=== PATIENT | male | born 1985 | race Caucasian/White ===

== ENCOUNTER 2022-03-30 00:52 | Emergency (ER) | payer OTHER, SELFPAY ==
[2022-03-30 00:54] VITALS: BP 151/100; PULSE 103; RESP 20; TEMP 36.6; O2SAT 96; BMI 27.3
[2022-03-30 01:02] LABS: Glucose, Whole Blood 453 mg/dL (60-115)
[2022-03-30 01:18] LABS: MANUAL DIFF FLAG NO
[2022-03-30 01:19] LABS: Appearance Urine Clear; Basophils Percent Auto 0.4 % (0-2); Color Urine Straw; Eosinophils Absolute Auto 0.1 X10*3/uL (0.0-0.4); Eosinophils Percent Auto 0.8 % (0-4); Glucose Urine UA >=1000 mg/dL (Negative); Hematocrit 40.4 % (42.0-52.0); Hemoglobin 13.1 g/dl (14.0-18.0); Imm Gran Abs Auto 0.08 X10*3/uL (0.00-0.03); Imm Gran Pct Auto 0.9 % (0.0-0.4); Leukocyte Esterase Urine Negative (Negative); Lymphocytes Absolute Auto 3.4 X10*3/uL (1.2-4.9); Mean Corpuscular HGB Conc 32.4 g/dl (31.0-36.0); Mean Corpuscular Hemoglobin 20.2 pg (27.0-33.0); Mean Platelet Volume 10.1 fL (9.4-12.4); Monocytes Absolute Auto 0.4 X10*3/uL (0.1-1.2); Monocytes Percent Auto 4.4 % (2-11); Neutrophils Absolute Auto 5.4 x10*3/uL (2.0-8.3); Neutrophils Percent Auto 57.5 % (45-73); Nitrite Urine Negative (Negative); PH 5.5 (5.0-9.0); Platelet Count 259 X10*3/uL (160-400); Red Blood Count 6.48 X10*6/uL (4.60-5.80); Red Cell Distribution Width 16.2 % (11.0-16.0); Specific Gravity - Urine 1.015 (1.005-1.025); UMIC TRIGGER UACC YES; Urine Blood Negative (Negative); Urine Ketones 15 mg/dL (Negative); Urine Protein Negative (Neg-Trace); White Blood Count 9.3 X10*3/uL (4.8-10.8)
[2022-03-30 01:21] LABS: Mean Corpuscular Volume 62.3 fL (80.0-98.0)
[2022-03-30 01:26] LABS: Bacteria Urine None Seen (None Seen); Hyaline Casts Urine 0-2 /LPF (0-2); RBC Urine 0-2 /HPF (0-2); Squamous Epithelial Cell Urine 0-2 /HPF (0-2); WBC Urine 0-5 /HPF (0-5)
[2022-03-30 01:35] VITALS: BP 146/80; PULSE 83; RESP 16; TEMP 36.7; O2SAT 97
--- NOTE | 2022-03-30 01:37 | PC.NURSE ---
Patient is alert and oriented. No pain or discomfort. Patient stated that his blood sugars been really high lately and he is having increase urination. Vts are WNL, no signs of resp distress. Skin is warm and dry.
--- NOTE | 2022-03-30 01:39 | ED_ITS ---
HPI - General Adult General Chief complaint: General Medical Stated complaint: High BS Time Seen by Provider: 03/30/22 01:25 Source: patient Mode of arrival: ambulatory Limitations: no limitations History of Present Illness HPI narrative: Patient comes to the emergency room complaining of hyperglycemia and frequent urination. Patient denies hematuria or dysuria. Patient states that he has been diabetic for several years, takes 18 units of Lantus at bedtime, and Humalog on an insulin sliding scale. Patient states that he is supposed to take a maximum of 14 units before meals if his blood glucose is high. Patient states that he does not follow instructions and usually takes up to 25 units. Patient states that he has a strict diet and he continues having high blood sugars. Patient states that his glucose have been elevated for weeks. The only reason he decided to come in is because he has been having frequent urination Related Data Allergies Allergy/AdvReac Type Severity Reaction Status Date / Time amoxicillin [AMOXICILLIN] Allergy Unknown VONITING Unverified 12/04/19 17:53 clindamycin [CLINDAMYCIN] Allergy Unknown VOMITING Unverified 12/04/19 17:53 Penicillins [PENICILLINS] Allergy Unknown VOMITING Unverified 12/04/19 17:53 prednisone [PREDNISONE] Allergy Unknown RASH ITCHY Unverified 12/04/19 17:53 Review of Systems Review of Systems: Constitutional : No Weight loss, No Fever, No Chills, No Night Sweats, No Fatigue, No Malaise ENT/Mouth : No Hearing loss, No Ear Pain, No Nasal Congestion, No Sinus Pain, No Hoarseness, No sore throat, No Rhinorrhea, No Swallowing Difficulty Eyes: No Eye Pain, No Swelling, No Redness, No Foreign Body, No Discharge, No Vision Changes Cardiovascular : No Chest Pain, No SOB, No Dyspnea on Exertion, No Orthopnea, No Edema, No Palpitations Respiratory : No Cough, No Sputum, No Wheezing, No Smoke Exposure, No Dyspnea Gastrointestinal : No Nausea, No Vomiting, No Diarrhea, No Constipation, No ab dominal Pain, No Hematochezia, No Melena Genitourinary : no irregular bleeding, No Dysuria, complaining of Urinary Frequency, No Hematuria, No Urinary Incontinence, No Urgency, No Flank Pain, No Urinary Flow Changes, No Hesitancy Musculoskeletal : No joint pain, No Myalgias, No Joint Swelling Skin : No Skin Lesions, No rash Neuro : No Weakness, No Numbness, No Paresthesias, No Loss of Consciousness, No Dizziness, No Headache Psych : No Anxiety/Panic, No Depression, No SI/HI/AH/VH, No Social Issues, Heme/Lymph: No Bruising, No Bleeding,No Lymphadenopathy Endocrine : Complaining of polyuria polydipsia PMF Past Medical History Medical History (Updated 03/30/22 @ 04:08 by Mckenna Damon MD) Type 2 diabetes mellitus Social History Social History Alcohol intake: never Smoked in Last 30 Days: Yes Use of substances other than those prescribed or required for medical reasons: No Advance Directives: No Physical Exam ED Vital Signs: Vital Signs - 24 hr 03/30/22 00:54 03/30/22 01:35 03/30/22 01:40 Temperature 98 F 98.0 F Pulse Rate 103 H 83 83 Respiratory Rate 20 16 16 Blood Pressure 151/100 H 146/80 H 146/80 H Pulse Oximetry 96 97 97 Oxygen Delivery Method Room Air Room Air Room Air 03/30/22 02:15 03/30/22 02:30 Temperature 97.3 F Pulse Rate 87 Respiratory Rate 16 18 Blood Pressure 138/87 Pulse Oximetry 97 Oxygen Delivery Method Room Air BMI result Body Mass Index 27.3 Const Other: Appearance: Alert. Oriented X3. No acute distress. Eyes: Pupils equal, round and reactive to light. ENT: Pharynx normal. Neck: Normal inspection. Neck supple. No lymph nodes noted. No crepitus CVS: Normal heart rate and rhythm. Pulses normal. Normal S1 and S2 Respiratory: No respiratory distress. Breath sounds normal. No Wheezing. No rales Abdomen: Soft and nontender. No rigidity. No distention. Skin: Skin warm and dry. Normal skin color. Normal skin turgor. Extremities: No lower extremity edema. No Lacerations. No Rash Neuro: Oriented X 3. No motor deficit. No sensory deficit. Moving all extremities. No slurred speech. CN 2 through 12 grossly intact Psych: calm, cooperative, normal affect Course Course Course Narrative: Patient's labs pending. Patient will be giving IV fluids, IV insulin. Patient is symptomatic, glucose 267 after IV treatment with insulin and fluids. Patient instructed to increase his Lantus to 22 units and have close follow-up with his primary care physician Medications Administered Discontinued Medications Generic Name Dose Route Start Last Admin Trade Name Freq PRN Reason Stop Dose Admin Sodium Chloride 2,000 mls @ 999 mls/hr 03/30/22 01:43 03/30/22 02:22 Ns IVCONT 03/30/22 03:43 999 mls/hr .Q2H1M ONE Administration Insulin Human Regular 10 unit 03/30/22 01:43 03/30/22 02:20 Insulin Regular, Human 100 Unit/Ml 3 Ml Vial IVPUSH 03/30/22 01:44 10 unit ONCE ONE Administration Medical Decision Making Medical Decision Making [facility] Narrative: Hyperglycemia is now controlled, negative for ketones, Differential Diagnosis Differential Diagnoses: The differential diagnosis associated with the presentation includes (Hyperglycemia, DKA) Lab Data [facility] Lab Attestation statement: I reviewed the patient's lab results. 03/30/22 01:12 03/30/22 01:12 Labs: Lab Results 03/30/22 03/30/22 03/30/22 Range/Units 00:57 01:12 01:12 WBC 9.3 (4.8-10.8) X10*3/uL RBC 6.48 H (4.60-5.80) X10*6/uL Hgb 13.1 L (14.0-18.0) g/dl Hct 40.4 L (42.0-52.0) % MCV 62.3 L (80.0-98.0) fL MCH 20.2 L (27.0-33.0) pg MCHC 32.4 (31.0-36.0) g/dl RDW 16.2 H (11.0-16.0) % Plt Count 259 (160-400) X10*3/uL MPV 10.1 (9.4-12.4) fL Immature Gran % (Auto) 0.9 H (0.0-0.4) % Neut % (Auto) 57.5 (45-73) % Lymph % (Auto) 36.0 (20-40) % [place] % (Auto) 4.4 (2-11) % Eos % (Auto) 0.8 (0-4) % Baso % (Auto) 0.4 (0-2) % Lymph # (Auto) 3.4 (1.2-4.9) X10*3/uL [place] # (Auto) 0.4 (0.1-1.2) X10*3/uL Eos # (Auto) 0.1 (0.0-0.4) X10*3/uL Baso # (Auto) 0.0 (0.0-0.2) X10*3/uL Abs Immat Gran (auto) 0.08 H (0.00-0.03) X10*3/uL Absolute Neuts (auto) 5.4 (2.0-8.3) x10*3/uL Absolute Nucleated RBC 0.000 (0.0-0.012) X10*3/uL Nucleated RBC % (auto) 0.0 (0.0-0.2) /100WBC Sodium 130 L (135-145) mmol/L Potassium 4.0 (3.3-5.1) mmol/L Chloride 98 (96-108) mmol/L Carbon Dioxide 21 L (22-29) mmol/L Anion Gap 15 (12-20) BUN 20 H (9-16) mg/dL Creatinine 0.92 (0.5-1.4) mg/dL Estim Creat Clear Calc 104.2 Estimated GFR > 60 POC Glucose 453 H* (60-115) mg/dL Random Glucose 447 H* (60-115) mg/dL Calcium 10.0 (8.4-10.2) mg/dL Total Bilirubin 0.6 (0.0-1.0) mg/dL Direct Bilirubin < 0.2 (0.0-0.5) mg/dL AST 11 (5-37) U/L ALT 16 (0-40) U/L Alkaline Phosphatase 99 (39-117) U/L Total Protein 8.0 (6.5-8.0) g/dL Albumin 4.8 (3.5-5.0) g/dL Urine Color Urine Appearance Urine pH (5.0-9.0) Ur Specific Reynolds (1.005-1.025) Urine Protein (Neg-Trace) mg/dL Urine Glucose (UA) (Negative) mg/dL Urine Ketones (Negative) mg/dL Urine Blood (Negative) Urine Nitrite (Negative) Ur Leukocyte Esterase (Negative) Urine RBC (0-2) /HPF Urine WBC (0-5) /HPF Ur Squamous Epith Cells (0-2) /HPF Urine Bacteria (None Seen) Hyaline Casts (0-2) /LPF Acetone, Qual Negative (Negative) 03/30/22 03/30/22 03/30/22 Range/Units 01:12 01:50 03:29 WBC (4.8-10.8) X10*3/uL RBC (4.60-5.80) X10*6/uL Hgb (14.0-18.0) g/dl Hct (42.0-52.0) % MCV (80.0-98.0) fL MCH (27.0-33.0) pg MCHC (31.0-36.0) g/dl RDW (11.0-16.0) % Plt Count (160-400) X10*3/uL MPV (9.4-12.4) fL Immature Gran % (Auto) (0.0-0.4) % Neut % (Auto) (45-73) % Lymph % (Auto) (20-40) % [place] % (Auto) (2-11) % Eos % (Auto) (0-4) % Baso % (Auto) (0-2) % Lymph # (Auto) (1.2-4.9) X10*3/uL [place] # (Auto) (0.1-1.2) X10*3/uL Eos # (Auto) (0.0-0.4) X10*3/uL Baso # (Auto) (0.0-0.2) X10*3/uL Abs Immat Gran (auto) (0.00-0.03) X10*3/uL Absolute Neuts (auto) (2.0-8.3) x10*3/uL Absolute Nucleated RBC (0.0-0.012) X10*3/uL Nucleated RBC % (auto) (0.0-0.2) /100WBC Sodium (135-145) mmol/L Potassium (3.3-5.1) mmol/L Chloride (96-108) mmol/L Carbon Dioxide (22-29) mmol/L Anion Gap (12-20) BUN (9-16) mg/dL Creatinine (0.5-1.4) mg/dL Estim Creat Clear Calc Estimated GFR POC Glucose 419 H* 267 H (60-115) mg/dL Random Glucose (60-115) mg/dL Calcium (8.4-10.2) mg/dL Total Bilirubin (0.0-1.0) mg/dL Direct Bilirubin (0.0-0.5) mg/dL AST (5-37) U/L ALT (0-40) U/L Alkaline Phosphatase (39-117) U/L Total Protein (6.5-8.0) g/dL Albumin (3.5-5.0) g/dL Urine Color Straw Urine Appearance Clear Urine pH 5.5 (5.0-9.0) Ur Specific Reynolds 1.015 (1.005-1.025) Urine Protein Negative (Neg-Trace) mg/dL Urine Glucose (UA) >=1000 H (Negative) mg/dL Urine Ketones 15 (Negative) mg/dL Urine Blood Negative (Negative) Urine Nitrite Negative (Negative) Ur Leukocyte Esterase Negative (Negative) Urine RBC 0-2 (0-2) /HPF Urine WBC 0-5 (0-5) /HPF Ur Squamous Epith Cells 0-2 (0-2) /HPF Urine Bacteria None Seen (None Seen) Hyaline Casts 0-2 (0-2) /LPF Acetone, Qual (Negative) Discharge Plan Discharge Clinical Impression: Acute hyperglycemia, Type 2 diabetes mellitus Patient Disposition: Home, Self-Care Instructions: Diabetic Hyperglycemia (ED) Additional Instructions: Please increase your Lantus dose to 22 units. Please follow-up with your primary care physician tomorrow. If you have any worsening or new symptoms, please return to the emergency room or call 911
[2022-03-30 01:40] VITALS: BP 146/80; PULSE 83; RESP 16; O2SAT 97
[2022-03-30 01:47] LABS: Anion Gap 15 (12-20)
[2022-03-30 01:54] LABS: Acetone, serum QL Negative (Negative); Alanine Aminotransferase 16 U/L (0-40); Albumin Level 4.8 g/dL (3.5-5.0); Alkaline Phosphatase 99 U/L (39-117); Aspartate Amino Transferase 11 U/L (5-37); Bilirubin Direct < 0.2 mg/dL (0.0-0.5); Bilirubin Total 0.6 mg/dL (0.0-1.0); Blood Urea Nitrogen 20 mg/dL (9-16); Carbon Dioxide 21 mmol/L (22-29); Chloride 98 mmol/L (96-108); Creatinine Clr Calc Pharmacy 104.2; Estimated Glomerular Filt Rate > 60; Glucose Random 447 mg/dL (60-115); Sodium 130 mmol/L (135-145)
[2022-03-30 01:55] LABS: Glucose, Whole Blood 419 mg/dL (60-115)
[2022-03-30 02:15] VITALS: PULSE 89; RESP 16; O2SAT 94
[2022-03-30] MEDS: Insulin Regular, Human 100 UNIT/ML 3 ML VIAL 10 UNIT IVPUSH (02:20)
[2022-03-30] MEDS: 0.9 % Sodium Chloride 2,000 ML 999 ML IVCONT (02:22)
--- NOTE | 2022-03-30 02:29 | PC.NURSE ---
Pt is alert and oriented. Denies to be in pain and discomfort. Insulin was given via IV, results pending. Patient is on IV Fluids right now. Tolerating well. No sighs of resp distress. Safety maintained.
[2022-03-30 02:30] VITALS: BP 138/87; PULSE 87; RESP 18; TEMP 36.3; O2SAT 97
[2022-03-30 03:34] LABS: Glucose, Whole Blood 267 mg/dL (60-115)
== END 2022-03-30 04:25 | disposition home or self-care (01) ==
PROVIDERS: Emergency Provider Emergency Medicine; PCP Internal Medicine
DX: E11.65 Type 2 diabetes mellitus with hyperglycemia (principal); R35.0 Frequency of micturition; Z79.4 Long term (current) use of insulin
CPT/HCPCS: 36415; 80048; 80076; 81001; 82009; 82947; 85025; 96374; 99284

== ENCOUNTER 2022-08-18 02:33 | Emergency (ER) | payer OTHER, SELFPAY ==
[2022-08-18 02:39] VITALS: BP 142/82; PULSE 88; RESP 20; TEMP 36.2; O2SAT 98; BMI 25.1
[2022-08-18 05:12] VITALS: BP 128/79; PULSE 78; RESP 16; TEMP 37; O2SAT 98
--- NOTE | 2022-08-18 06:56 | ED.GENADULT ---
HPI - General Adult General Chief complaint: General Medical Stated complaint: Blisters in mouth? from diabetes Time Seen by Provider: 08/18/22 06:32 Source: patient Mode of arrival: ambulatory Limitations: no limitations History of Present Illness HPI narrative: Patient is a 37-year-old male with T2Dm requiring insulin presenting with mouth pain for the past ten days. Has been working in [place] so was unable to obtain medical evaluation until returning home today. Increased pain with eating or drinking. Metallic taste in mouth. Denies any other complaints. Has not tried any OTC treatments. Reports his glucose levels have been better, has CGM and most recent POC was 220. Patient states he ate prior to arrival to ED. MD complaint: oral pain Onset (ago): day(s) Location: mouth Radiation: non-radiation Severity: severe Quality: burning Pain Consistency: constant Relieving factors: none Exacerbating factors: eating Associated symptoms: denies other symptoms Treatments prior to arrival: none Related Data Previous Rx's Medication Instructions Recorded nystatin 100,000 unit/mL oral 5 ml PO QID 14 days #280 mL 08/18/22 suspension Allergies Allergy/AdvReac Type Severity Reaction Status Date / Time amoxicillin [AMOXICILLIN] Allergy Unknown VONITING Verified 08/18/22 02:42 clindamycin [CLINDAMYCIN] Allergy Unknown VOMITING Verified 08/18/22 02:42 Penicillins [PENICILLINS] Allergy Unknown VOMITING Verified 08/18/22 02:42 prednisone [PREDNISONE] Allergy Unknown RASH ITCHY Verified 08/18/22 02:42 Review of Systems Review of Systems: As per HPI. Yes all other systems are reviewed and are negative Constitutional: Constitutional: Reports as per HPI [facility] Past Medical History Medical History (Updated 08/18/22 @ 07:19 by Jennifer Brody NP) Type 2 diabetes mellitus Social History Social History Alcohol intake: never Smoked in Last 30 Days: Yes Use of substances other than those prescribed or required for medical reasons: No Advance Directives: No Advance Directives Information Provided: No Physical Exam ED Vital Signs: Vital Signs - 24 hr 08/18/22 02:39 08/18/22 05:12 08/18/22 06:58 Temperature 97.1 F 98.6 F 98.0 F Pulse Rate 88 78 79 Respiratory Rate 20 16 14 Blood Pressure 142/82 H 128/79 114/66 Pulse Oximetry 98 98 98 Oxygen Delivery Method Room Air Room Air Room Air BMI result Body Mass Index 25.1 Vital signs have been reviewed and appear to be correct. Blood pressure normal. Heart rate normal. Respiratory rate normal. Temperature normal. Oxygen saturation normal. Const General: cooperative, healthy appearing and no acute distress Orientation/consciousness: oriented to person, oriented to place, oriented to time and patient oriented x3 Limitations: no limitations HENMT Head: Yes normocephalic and Yes atraumatic Ears: external ears normal General nose exam: Normal external nose present Face and sinus: Yes face symmetric Mouth: lip abnormal (angular chelitis), moist mucous membranes, Abnormal oral and palatal mucosa present white patches and tongue abnormal with white coating Throat: Yes uvula midline and No uvular edema Eyes Pupils: Equal, round and reactive pupils present Neck Neck: Yes normal visual inspection and Yes supple Resp Effort & Inspection: normal respiratory effort and able to speak in complete sentences Auscultation: clear to auscultation bilaterally Cardio Rate: regular rate Rhythm: regular rhythm Heart sounds: S1 normal heart sound present and S2 normal heart sound present GI Palpation (GI): Soft to palpation and nontender Auscultation: normoactive bowel sounds General: Yes no CVA tenderness Back/Spine/Pelvis Back: no CVA tenderness Skin General skin exam: elasticity normal and turgor normal Neuro General: oriented to person, oriented to place, oriented to time, patient oriented x3, moves all extremities, no focal motor deficits and CN's II-XI intact bilaterally Cranial nerves: Yes Equal, round and reactive pupils present Cognition (Neuro): normal cognition Extrem General: Yes full ROM, Yes no pedal edema and Yes no calf tenderness Psych Mental Status: mental status grossly normal Affect: normal affect Thought process: Normal thought process present Medical Decision Making Medical Decision Making MDM Narrative: Patient is a 37-year-old male with T2Dm requiring insulin presenting with mouth pain for the past ten days. On exam patient is awake, A+Ox3, nontoxic appearing, normal neurological exam, white plaques noted on tongue with angular chelitis, no other rashes or lesions, no angioedema, uvula midline, abd snt. Presentation is consistent with oral candidiasis. Unlikely hairy leukoplakia, aphthous stomatitis, herpes gingivostomatitis, perioral dermatitis. No other rashes so no concern for SJS. Will treat with Nystatin suspension and patient to follow up with PCP. Return precautions discussed at bedside. Differential Diagnosis Differential Diagnoses: The differential diagnosis associated with the presentation includes As above. External Record Review External record reviewed: Inpatient record, Office record and Outpatient record Prescription Management I considered prescription management with: Other (antifungal) Chronic Conditions Patient?s care impacted by: Diabetes Discharge Plan Discharge Clinical Impression: Oropharyngeal candidiasis, Angular cheilitis with candidiasis Patient Disposition: Home, Self-Care Instructions: Oral Candidiasis (ED) Additional Instructions: Please use the medication prescribed as instructed. Follow up with your primary care provider within two days. Return to the emergency department if you develop fever 100.4F or greater, worsening pain, inability to eat or drink, or any other concerning symptoms. Prescriptions: New nystatin 100,000 unit/mL suspension 5 ml PO QID 14 Days Qty: 280 0RF Rx Instructions: swish and swallow
[2022-08-18 06:58] VITALS: BP 114/66; PULSE 79; RESP 14; TEMP 36.7; O2SAT 98
== END 2022-08-18 07:42 | disposition home or self-care (01) ==
PROVIDERS: Emergency Provider Emergency Medicine; PCP Internal Medicine
DX: B37.0 Candidal stomatitis (principal); B37.83 Candidal cheilitis; E11.9 Type 2 diabetes mellitus without complications; Z79.4 Long term (current) use of insulin
CPT/HCPCS: 99283; 99284

== ENCOUNTER 2022-09-15 23:57 | Emergency (ER) | payer OTHER, SELFPAY ==
[2022-09-15 23:58] VITALS: BP 143/94; PULSE 110; RESP 18; TEMP 36.1; O2SAT 99; BMI 24.3
--- NOTE | 2022-09-16 02:00 | ED.EXTPRO ---
HPI - Extremity Problem General Chief complaint: Extremity Injury, Upper Stated complaint: right shoulder pain Source: patient Mode of arrival: ambulatory History of Present Illness HPI Narrative: 37-year-old male with worsening right shoulder pain after arm wrestling 1 month ago. Denies any associated fevers or chills. Related Data Previous Rx's Medication Instructions Recorded nystatin 100,000 unit/mL oral 5 ml PO QID 14 days #280 mL 08/18/22 suspension Allergies Allergy/AdvReac Type Severity Reaction Status Date / Time amoxicillin [AMOXICILLIN] Allergy Unknown VONITING Verified 08/18/22 02:42 clindamycin [CLINDAMYCIN] Allergy Unknown VOMITING Verified 08/18/22 02:42 Penicillins [PENICILLINS] Allergy Unknown VOMITING Verified 08/18/22 02:42 prednisone [PREDNISONE] Allergy Unknown RASH ITCHY Verified 08/18/22 02:42 Review of Systems Review of Systems: Pertinent positives and negatives as stated in HPI [facility] Past Medical History Source: nursing notes reviewed Medical History Type 2 diabetes mellitus Social History Social History Alcohol intake: never Advance Directives: No Advance Directives Information Provided: Yes Physical Exam Vital Signs: Vital Signs: Last Vital Signs Temp 97 F 09/15/22 23:58 Pulse 110 H 09/15/22 23:58 Resp 18 09/15/22 23:58 BP 143/94 H 09/15/22 23:58 Pulse Ox 99 09/15/22 23:58 O2 Del Method Room Air 09/15/22 23:58 BMI result Body Mass Index 24.3 VITAL SIGNS: Reviewed. GENERAL: Well developed, well nourished, in no acute distress. HEAD: Normocephalic/atraumatic EYES: PERRLA, EOMI LUNGS: Normal breath sounds. No adventitious sounds or accessory muscle use. SpO2<99> CARDIOVASCULAR: Regular rate and rhythm without noted murmurs ABDOMEN: Soft, non-tender, non-distended with bowel sounds. MUSCULOSKELETAL: No tenderness, deformities, or effusions noted on gross inspection. EXTREMITIES: No cyanosis, clubbing or edema. SKIN: Inspection of the skin reveals no rashes NEUROLOGIC: Alert and oriented x 4. Strength and sensation to light touch were grossly intact x 4. Medical Decision Making Medical Decision Making MDM Narrative: 37-year-old male with possible rotator cuff injury, review of x-ray is negative for acute fracture or dislocation. He is otherwise discharged after receiving combination analgesics and will be provided with a referral to follow-up with orthopedics. Radiology Impression Radiologist Impression: No fracture, otherwise my interpretation is in agreement with radiology's impression. Discharge Plan Discharge Clinical Impression: Pain in right shoulder Patient Disposition: Home, Self-Care Instructions: Shoulder Pain (ED) Additional Instructions: 1. Tylenol 1000 mg, orally, every 6 hours as needed for pain control. Do not exceed 4000 mg within 24 hours. 2. Ibuprofen 4 no mg, orally with milk or food, every 6 hours as needed for pain control. Recommend that you take this medication with Tylenol for improved symptom relief. 3. I suspect that you may have frozen shoulder given underlying diabetes and/or rotator injury. You will need to follow-up with your primary care provider and obtain a referral for either Sports Medicine or Orthopedics. Return to the ER for any worsening symptoms. Prescriptions: No Action nystatin 100,000 unit/mL suspension 5 ml PO QID 14 Days Qty: 280 0RF Rx Instructions: swish and swallow Referrals: Gabriel Sun MD [Primary Care Provider] -
[2022-09-16] MEDS: Acetaminophen 325 MG TABLET 975 MG PO (02:08)
== END 2022-09-16 02:23 | disposition home or self-care (01) ==
PROVIDERS: Emergency Provider Student in an Organized Health Care Education/Training Program; PCP Internal Medicine
DX: M25.511 Pain in right shoulder (principal)
CPT/HCPCS: 73030; 99283

== ENCOUNTER 2023-01-16 01:04 | Emergency (ER) | payer OTHER, SELFPAY ==
[2023-01-16 01:23] VITALS: BP 145/94; PULSE 91; RESP 18; TEMP 36.6; O2SAT 97; BMI 24.8
--- NOTE | 2023-01-16 01:39 | ED.GENADULT ---
HPI - General Adult General Chief complaint: Dental/Oral Stated complaint: Dental pain Time Seen by Provider: 01/16/23 01:32 Source: patient, RN notes reviewed and old records reviewed Mode of arrival: ambulatory Limitations: no limitations History of Present Illness HPI narrative: a 37-year-old male presents for evaluation of left facial/ dental pain. He reports that he broke the tooth right in front of his left lower molars 2 days ago. He states that he has had worsening pain ever since. He has tried topical medications without any improvement he does not like any pills to too many friends dying from opiates. He states because of this he does not even warm Motrin or Tylenol denies any facial swelling Related Data Previous Rx's Medication Instructions Recorded nystatin 100,000 unit/mL oral 5 ml PO QID 14 days #280 mL 08/18/22 suspension azithromycin 250 mg tablet See Rx Instructions PO .COMPLEX #6 01/16/23 tabs Allergies Allergy/AdvReac Type Severity Reaction Status Date / Time amoxicillin [AMOXICILLIN] Allergy Unknown VONITING Verified 08/18/22 02:42 clindamycin [CLINDAMYCIN] Allergy Unknown VOMITING Verified 08/18/22 02:42 Penicillins [PENICILLINS] Allergy Unknown VOMITING Verified 08/18/22 02:42 prednisone [PREDNISONE] Allergy Unknown RASH ITCHY Verified 08/18/22 02:42 Review of Systems Constitutional: Constitutional: Denies chills and Denies fever(s) ENT: Reports mouth pain, Denies sinus pain and Denies sore throat PMFSH Past Medical History Medical History Type 2 diabetes mellitus Social History Social History Alcohol intake: never Physical Exam ED Vital Signs: Vital Signs - 24 hr 01/16/23 01:23 Temperature 97.9 F Pulse Rate 91 Respiratory Rate 18 Blood Pressure 145/94 H Pulse Oximetry 97 Oxygen Delivery Method Room Air BMI result Body Mass Index 24.8 Const General: healthy appearing, comfortable, no acute distress, alert and awake Nutritional Appearance: well nourished Orientation/consciousness: patient oriented x3 HENMT Other: dental fracture of tooth number 22 almost to the gumline. Dentin exposed. Minimal surrounding erythema, no drainable abscess or significant edema Head: Yes normocephalic and Yes atraumatic Throat: Yes posterior oropharynx normal Neck Neck: Yes full ROM Resp Effort & Inspection: normal respiratory effort, able to speak in complete sentences and not labored GI Inspection: No distended Palpation (GI): Soft to palpation, not firm, nontender, no guarding and not rigid Auscultation: normoactive bowel sounds Neuro General: patient oriented x3 Cranial nerves: Yes Bilaterally intact EOM present Cognition (Neuro): normal cognition Extrem Other: Moving all extremities well without any obvious deformities Medical Decision Making Medical Decision Making MDM Narrative: patient has acute dental trauma with likely developing infection. No drainable abscess. He is allergic to penicillins and clindamycin. We will treat with azithromycin. He reports that he has an oral surgeon/ dentist that he follows regularly with Differential Diagnosis Differential Diagnoses: The differential diagnosis associated with the presentation includes dental pain Facial pain Dental abscess Dental caries Dental fracture Discharge Plan Discharge Clinical Impression: Fracture of tooth Patient Disposition: Home, Self-Care Instructions: Acute Dental Trauma (ED) Additional Instructions: take azithromycin as prescribed. Follow-up with your oral surgeon return for new or worsening symptoms Prescriptions: New azithromycin 250 mg tablet See Rx Instructions .ROUTE .COMPLEX Qty: 6 0RF Rx Instructions: For 250 mg dose pack: take 500 mg today (day 1), then 250 mg for 4 days (days 2-5) No Action nystatin 100,000 unit/mL suspension 5 ml PO QID 14 Days Qty: 280 0RF Rx Instructions: swish and swallow
[2023-01-16 01:51] VITALS: BP 140/86; PULSE 93; RESP 18; TEMP 36.7; O2SAT 99
== END 2023-01-16 01:54 | disposition home or self-care (01) ==
PROVIDERS: Emergency Provider Internal Medicine; PCP Internal Medicine
DX: K08.539 Fractured dental restorative material, unspecified (principal); K08.89 Other specified disorders of teeth and supporting structures; E11.9 Type 2 diabetes mellitus without complications
CPT/HCPCS: 99283; 99284

== ENCOUNTER 2023-02-26 22:17 | Emergency (ER) | payer OTHER, SELFPAY ==
[2023-02-26 22:26] VITALS: BP 135/90; PULSE 93; RESP 18; TEMP 36.6; O2SAT 98; BMI 22.0
--- NOTE | 2023-02-27 00:41 | ED.GENADULT ---
HPI - General Adult General Chief complaint: General Medical Stated complaint: lump in neck Time Seen by Provider: 02/27/23 00:41 Source: patient Mode of arrival: ambulatory Limitations: no limitations History of Present Illness HPI narrative: 37 yo male with PMH of DM woke up with swollen gland L neck and hurts to swallow, no fevers, no vomiting, no pain otherwise only when he swallows has normal ROM of neck MD complaint: swollen gland in neck Onset (ago): day(s) (1) Location: neck Radiation: non-radiation Severity: mild Quality: aching Pain Consistency: intermittent Relieving factors: none Exacerbating factors: other (swallowing) Associated symptoms: denies other symptoms Treatments prior to arrival: none Related Data Previous Rx's Medication Instructions Recorded nystatin 100,000 unit/mL oral 5 ml PO QID 14 days #280 mL 08/18/22 suspension azithromycin 250 mg tablet See Rx Instructions PO .COMPLEX #6 01/16/23 tabs doxycycline hyclate 100 mg capsule 100 mg PO BID 7 days #14 caps 02/27/23 Allergies Allergy/AdvReac Type Severity Reaction Status Date / Time amoxicillin [AMOXICILLIN] Allergy Unknown VONITING Verified 02/26/23 22:25 clindamycin [CLINDAMYCIN] Allergy Unknown VOMITING Verified 02/26/23 22:25 Penicillins [PENICILLINS] Allergy Unknown VOMITING Verified 02/26/23 22:25 prednisone [PREDNISONE] Allergy Unknown RASH ITCHY Verified 02/26/23 22:25 Review of Systems Review of Systems: Constitutional : No Fever, No Chills ENT/Mouth : No swallowing difficulty, no change in voice, pos sore throat Eyes: No Eye Pain, No Swelling Cardiovascular : No Chest Pain, No SOB Respiratory : No Cough, No Sputum Gastrointestinal : No Nausea, No Vomiting, No Diarrhea Genitourinary : No Dysuria Musculoskeletal : No Myalgias Skin : No rash Neuro : No Weakness, No Numbness, No Headache PMFSH Past Medical History Attestation statement: The following information was validated with the patient. Medical History Type 2 diabetes mellitus Social History Social History Alcohol intake: never Advance Directives: No Advance Directives Information Provided: Yes Physical Exam ED Vital Signs: Vital Signs - 24 hr 02/26/23 22:26 Temperature 97.9 F Pulse Rate 93 Respiratory Rate 18 Blood Pressure 135/90 H Pulse Oximetry 98 Oxygen Delivery Method Room Air BMI result Body Mass Index 22.0 Appearance: Alert. Oriented X3. No acute distress. Eyes: Pupils equal, round and reactive to light. ENT: Pharynx normal. no trismus no sublingual or submandibular swelling Neck: Normal inspection. Neck supple. normal ROM no pain with ROM no hyoid ttp L anterior cervical lymphadenopathy ttp noted soft and mobile no erythema or fluctuance CVS: Normal heart rate and rhythm. Pulses normal. Respiratory: No respiratory distress. Breath sounds normal. Abdomen: Soft and nontender. Skin: Skin warm and dry. Normal skin color. Extremities: No lower extremity edema. Neuro: Oriented X 3. No motor deficit. No sensory deficit. Medical Decision Making Medical Decision Making [facility] Narrative: 37 yo male with L sided cervical adenitis has hx of DM no trismus no pain with ROM testing only pain with swallowing he is not toxic, no drooling stable for DC with oral antibiotics and precautions Differential Diagnosis Differential Diagnoses: The differential diagnosis associated with the presentation includes adenitis, pharyngitis Admission/Observation Consideration of admission/observation: Escalation of care including admission/observation considered can be managed as outpatient External Record Review External record reviewed: Office record Prescription Management I considered prescription management with: Antibiotic Chronic Conditions Patient?s care impacted by: Diabetes Discharge Plan Discharge Clinical Impression: Acute adenitis Patient Disposition: Home, Self-Care Instructions: Adenitis (ED) Additional Instructions: return for worsening swelling pain, fevers, inability to eat or drink drooling or any other concerns. please make sure you keep an eye on the swelling and that this improves. On doxycycline, do not take pills immediately before going to bed and swallow pills with plenty of water. Avoid direct sunlight, iron, antacids, and Pepto Bismol. Call your provider if you develop new ringing in your ears, new problems hearing, dizziness, difficulty swallowing, rash, abdominal discomfort, nausea, or diarrhea.? Prescriptions: New doxycycline hyclate 100 mg capsule 100 mg PO BID 7 Days Qty: 14 0RF No Action nystatin 100,000 unit/mL suspension 5 ml PO QID 14 Days Qty: 280 0RF Rx Instructions: swish and swallow azithromycin 250 mg tablet See Rx Instructions .ROUTE .COMPLEX Qty: 6 0RF Rx Instructions: For 250 mg dose pack: take 500 mg today (day 1), then 250 mg for 4 days (days 2-5)
[2023-02-27 00:45] VITALS: BP 139/88; PULSE 82; RESP 20; TEMP 36.4; O2SAT 99
== END 2023-02-27 00:48 | disposition home or self-care (01) ==
PROVIDERS: Emergency Provider Emergency Medicine; PCP Internal Medicine
DX: I88.9 Nonspecific lymphadenitis, unspecified (principal); M54.2 Cervicalgia; Z79.899 Other long term (current) drug therapy
CPT/HCPCS: 99283; 99284

== ENCOUNTER 2023-05-25 22:08 | Emergency (ER) | payer OTHER, SELFPAY ==
[2023-05-25 22:12] VITALS: BP 155/94; PULSE 94; RESP 18; TEMP 36.9; O2SAT 100; BMI 22.9
[2023-05-25 22:30] LABS: Hematocrit 38.5 % (42.0-52.0); Hemoglobin 12.5 g/dl (14.0-18.0); Mean Corpuscular HGB Conc 32.5 g/dl (31.0-36.0); Mean Corpuscular Hemoglobin 20.5 pg (27.0-33.0); Mean Platelet Volume 9.7 fL (9.4-12.4); Platelet Count 258 X10*3/uL (160-400); Red Cell Distribution Width 15.4 % (11.0-16.0); White Blood Count 7.5 X10*3/uL (4.8-10.8)
[2023-05-25 22:31] LABS: Mean Corpuscular Volume 63.1 fL (80.0-98.0)
[2023-05-25 22:51] LABS: Alanine Aminotransferase 19 U/L (0-40); Albumin Level 4.6 g/dL (3.5-5.0); Alkaline Phosphatase 72 U/L (39-117); Anion Gap 15 (12-20); Aspartate Amino Transferase 13 U/L (5-37); Bilirubin Total 0.6 mg/dL (0.0-1.0); Blood Urea Nitrogen 12 mg/dL (9-16); Calcium 9.8 mg/dL (8.4-10.2); Carbon Dioxide 26 mmol/L (22-29); Chloride 101 mmol/L (96-108); Creatinine Clr Calc Pharmacy 112.7; Estimated Glomerular Filt Rate > 60; Glucose Random 385 mg/dL (60-115); Potassium 4.4 mmol/L (3.3-5.1); Sodium 138 mmol/L (135-145); Total Protein 7.1 g/dL (6.5-8.0)
[2023-05-25 22:52] LABS: Glucose, Whole Blood 376 mg/dL (60-115)
[2023-05-25 23:57] LABS: Appearance Urine Clear; Color Urine Yellow; Glucose Urine UA >=1000 mg/dL (Negative); Leukocyte Esterase Urine Negative (Negative); Nitrite Urine Negative (Negative); PH 5.5 (5.0-9.0); Specific Gravity - Urine >= 1.030 (1.005-1.025); UMIC TRIGGER UACC YES; Urine Blood Negative (Negative); Urine Ketones Trace mg/dL (Negative); Urine Protein Negative (Neg-Trace)
--- NOTE | 2023-05-26 00:08 | PC.NURSE ---
PT reports poc being in 500s, forgot insulin at home while at work. PT reports he didn't eat anything all day, and did not give himself insulin until 7pm- 15units. On arrival pt POC 376. at 0005 poc recheck 327. Pt alert and orient, complains of bilateral leg pain and thirst. PT denies other symptoms including frequent urination, DENISE or blurred vision. Plan of care ongoing.
[2023-05-26 00:09] LABS: Bacteria Urine None Seen (None Seen); Hyaline Casts Urine 0-2 /LPF (0-2); RBC Urine 0-2 /HPF (0-2); Squamous Epithelial Cell Urine 0-2 /HPF (0-2); WBC Urine 0-5 /HPF (0-5)
[2023-05-26 00:10] LABS: Glucose, Whole Blood 327 mg/dL (60-115)
--- NOTE | 2023-05-26 00:25 | ED_ITS ---
HPI - General Adult General Chief complaint: Recheck/Abnormal Lab/Rx Stated complaint: blood sugar is high, sharp pain in feet Time Seen by Provider: 05/26/23 00:17 Source: patient Mode of arrival: ambulatory Limitations: no limitations History of Present Illness HPI narrative: Emergency room complaining of high blood sugar. Patient states that he usually takes 45 units of Lantus at home, and 20-30 units of insulin lispro at meal time. Patient states he is compliant with medication. Today, patient states that his blood sugar was above 500. Patient also complaining of pins and needle sensation on the bottom of his feet. Patient states that he has not on any medication for this. Related Data Previous Rx's Medication Instructions Recorded nystatin 100,000 unit/mL oral 5 ml PO QID 14 days #280 mL 08/18/22 suspension azithromycin 250 mg tablet See Rx Instructions PO .COMPLEX #6 01/16/23 tabs doxycycline hyclate 100 mg capsule 100 mg PO BID 7 days #14 caps 02/27/23 gabapentin 100 mg capsule 100 mg PO TID #90 caps 05/26/23 Allergies Allergy/AdvReac Type Severity Reaction Status Date / Time amoxicillin [AMOXICILLIN] Allergy Unknown VONITING Verified 05/25/23 22:12 clindamycin [CLINDAMYCIN] Allergy Unknown VOMITING Verified 05/25/23 22:12 Penicillins [PENICILLINS] Allergy Unknown VOMITING Verified 05/25/23 22:12 prednisone [PREDNISONE] Allergy Unknown RASH ITCHY Verified 05/25/23 22:12 Review of Systems 2 Review of Systems: Constitutional : No Weight loss, No Fever, No Chills, No Night Sweats, No Fatigue, No Malaise ENT/Mouth : No Hearing loss, No Ear Pain, No Nasal Congestion, No Sinus Pain, No Hoarseness, No sore throat, No Rhinorrhea, No Swallowing Difficulty Eyes: No Eye Pain, No Swelling, No Redness, No Foreign Body, No Discharge, No Vision Changes Cardiovascular : No Chest Pain, No SOB, No Dyspnea on Exertion, No Orthopnea, No Edema, No Palpitations Respiratory : No Cough, No Sputum, No Wheezing, No Smoke Exposure, No Dyspnea Gastrointestinal : No Nausea, No Vomiting, No Diarrhea, No Constipation, No abdominal Pain, No Hematochezia, No Melena Genitourinary : no irregular bleeding, No Dysuria, No Urinary Frequency, No Hematuria, No Urinary Incontinence, No Urgency, No Flank Pain, No Urinary Flow Changes, No Hesitancy Musculoskeletal : No joint pain, No Myalgias, No Joint Swelling Skin : No Skin Lesions, No rash Neuro : No Weakness, No Numbness, complaining of pins and needle sensation in both feet, No Loss of Consciousness, No Dizziness, No Headache Psych : No Anxiety/Panic, No Depression, No SI/HI/AH/VH, No Social Issues, Heme/Lymph: No Bruising, No Bleeding,No Lymphadenopathy Endocrine : No Polyuria, No Polydipsia, No Temperature Intolerance [facility] Past Medical History Medical History Diabetic neuropathy Type 2 diabetes mellitus Social History Social History Alcohol intake: never Smoked in Last 30 Days: Yes Use of substances other than those prescribed or required for medical reasons: No Advance Directives: No Advance Directives Information Provided: No Physical Exam ED Vital Signs: Vital Signs - 24 hr 05/25/23 22:12 Temperature 98.4 F Pulse Rate 94 Respiratory Rate 18 Blood Pressure 155/94 H Pulse Oximetry 100 Oxygen Delivery Method Room Air BMI result Body Mass Index 22.9 Const Other: Appearance: Alert. Oriented X3. No acute distress. Eyes: Pupils equal, round and reactive to light. ENT: Pharynx normal. Neck: Normal inspection. Neck supple. No lymph nodes noted. No crepitus CVS: Normal heart rate and rhythm. Pulses normal. Normal S1 and S2 Respiratory: No respiratory distress. Breath sounds normal. No Wheezing. No rales Abdomen: Soft and nontender. No rigidity. No distention. Skin: Skin warm and dry. Normal skin color. Normal skin turgor. Extremities: No lower extremity edema. No Lacerations. No Rash Neuro: Oriented X 3. No motor deficit. No sensory deficit. Moving all extremities. No slurred speech. CN 2 through 12 grossly intact Psych: calm, cooperative, normal affect Medications Administered Discontinued Medications Generic Name Dose Route Start Last Admin Trade Name Freq PRN Reason Stop Dose Admin Sodium Chloride 1,000 mls @ 999 mls/hr 05/26/23 00:19 05/26/23 01:18 Ns IVCONT 05/26/23 01:19 999 mls/hr .Q1H1M ONE Administration Insulin Human Regular 10 unit 05/26/23 00:19 05/26/23 01:17 Insulin Regular, Human 100 Unit/Ml 3 Ml Vial IVPUSH 05/26/23 00:20 10 unit ONCE ONE Administration Medical Decision Making Medical Decision Making [facility] Narrative: -my interpretation of labs: Hematology at baseline, chemistry within normal limits, except for a glucose of 385. Anion gap is closed, renal function normal limits -patient receiving IV fluids, and 10 units of insulin. -patient states that he has enough Lantus and lispro at home. Patient states that he has too many boxes of insulin at home, which is suspicious for medication compliance -patient complaining of neuropathy in his feet, patient states he has not taking any medications. I discussed with the patient starting gabapentin low-dose which may be gradually increased. Discussed with the patient that this medication may make him feel drowsy, another take his medication before driving or working -after IV fluids and insulin, patient's glucose improved to 327. -discussed with the patient to increase Lantus at night to 50 units. At this time, I do not want to change his lispro dose, patient states that he takes between 20-30 units. There is a question of compliance. -patient given the phone number to call endocrinology. Differential Diagnosis Differential Diagnoses: The differential diagnosis associated with the presentation includes (Hyperglycemia, neuropathy, medication noncompliance) Admission/Observation Consideration of admission/observation: Escalation of care including admission/observation considered (Patient's elevated glycemic levels, admission was considered) Lab Data [facility] Lab Attestation statement: I reviewed the patient's lab results. 05/25/23 22:25 05/25/23 22:25 Labs: Lab Results 05/25/23 05/25/23 05/25/23 Range/Units 22:24 22:25 23:39 WBC 7.5 (4.8-10.8) X10*3/uL RBC 6.10 H (4.60-5.80) X10*6/uL Hgb 12.5 L (14.0-18.0) g/dl Hct 38.5 L (42.0-52.0) % MCV 63.1 L (80.0-98.0) fL MCH 20.5 L (27.0-33.0) pg MCHC 32.5 (31.0-36.0) g/dl RDW 15.4 (11.0-16.0) % Plt Count 258 (160-400) X10*3/uL MPV 9.7 (9.4-12.4) fL Absolute Nucleated RBC 0.000 (0.0-0.012) X10*3/uL Nucleated RBC % (auto) 0.0 (0.0-0.2) /100WBC Sodium 138 (135-145) mmol/L Potassium 4.4 (3.3-5.1) mmol/L Chloride 101 (96-108) mmol/L Carbon Dioxide 26 (22-29) mmol/L Anion Gap 15 (12-20) BUN 12 (9-16) mg/dL Creatinine 0.84 (0.5-1.4) mg/dL Estim Creat Clear Calc 112.7 Estimated GFR > 60 POC Glucose 376 H* (60-115) mg/dL Random Glucose 385 H* (60-115) mg/dL Calcium 9.8 (8.4-10.2) mg/dL Total Bilirubin 0.6 (0.0-1.0) mg/dL AST 13 (5-37) U/L ALT 19 (0-40) U/L Alkaline Phosphatase 72 (39-117) U/L Total Protein 7.1 (6.5-8.0) g/dL Albumin 4.6 (3.5-5.0) g/dL Beta-Hydroxybutyrate 0.27 (0.02-0.27) mmol/L Urine Color Yellow Urine Appearance Clear Urine pH 5.5 (5.0-9.0) Ur Specific Irving >= 1.030 H (1.005-1.025) Urine Protein Negative (Neg-Trace) mg/dL Urine Glucose (UA) >=1000 H (Negative) mg/dL Urine Ketones Trace (Negative) mg/dL Urine Blood Negative (Negative) Urine Nitrite Negative (Negative) Ur Leukocyte Esterase Negative (Negative) Urine RBC 0-2 (0-2) /HPF Urine WBC 0-5 (0-5) /HPF Ur Squamous Epith Cells 0-2 (0-2) /HPF Urine Bacteria None Seen (None Seen) Hyaline Casts 0-2 (0-2) /LPF 05/26/23 Range/Units 00:05 WBC (4.8-10.8) X10*3/uL RBC (4.60-5.80) X10*6/uL Hgb (14.0-18.0) g/dl Hct (42.0-52.0) % MCV (80.0-98.0) fL MCH (27.0-33.0) pg MCHC (31.0-36.0) g/dl RDW (11.0-16.0) % Plt Count (160-400) X10*3/uL MPV (9.4-12.4) fL Absolute Nucleated RBC (0.0-0.012) X10*3/uL Nucleated RBC % (auto) (0.0-0.2) /100WBC Sodium (135-145) mmol/L Potassium (3.3-5.1) mmol/L Chloride (96-108) mmol/L Carbon Dioxide (22-29) mmol/L Anion Gap (12-20) BUN (9-16) mg/dL Creatinine (0.5-1.4) mg/dL Estim Creat Clear Calc Estimated GFR POC Glucose 327 H (60-115) mg/dL Random Glucose (60-115) mg/dL Calcium (8.4-10.2) mg/dL Total Bilirubin (0.0-1.0) mg/dL AST (5-37) U/L ALT (0-40) U/L Alkaline Phosphatase (39-117) U/L Total Protein (6.5-8.0) g/dL Albumin (3.5-5.0) g/dL Beta-Hydroxybutyrate (0.02-0.27) mmol/L Urine Color Urine Appearance Urine pH (5.0-9.0) Ur Specific Irving (1.005-1.025) Urine Protein (Neg-Trace) mg/dL Urine Glucose (UA) (Negative) mg/dL Urine Ketones (Negative) mg/dL Urine Blood (Negative) Urine Nitrite (Negative) Ur Leukocyte Esterase (Negative) Urine RBC (0-2) /HPF Urine WBC (0-5) /HPF Ur Squamous Epith Cells (0-2) /HPF Urine Bacteria (None Seen) Hyaline Casts (0-2) /LPF Critical Care Time Critical Care Time Critical Care Time: Yes Total Critical Care Time: 60 Attestation: I have personally provided critical care time. Time includes review of lab data, radiology results, discussion with consultants, and monitoring for potential decompensation. Intervention performed as documented. Discharge Plan Discharge Clinical Impression: Hyperglycemia due to type 2 diabetes mellitus, Diabetic neuropathy Patient Disposition: Home, Self-Care Instructions: Diabetic Peripheral Neuropathy (ED), Diabetic Hyperglycemia (ED), Diabetes and Exercise (ED) Additional Instructions: Please increase Lantus to 15 units at bedtime. Also, please call endocrinology on Sunday. Please follow-up with your primary care physician tomorrow. If you have any worsening or new symptoms, please return to the emergency room or call 911 Prescriptions: New gabapentin 100 mg capsule 100 mg PO TID Qty: 90 0RF No Action nystatin 100,000 unit/mL suspension 5 ml PO QID 14 Days Qty: 280 0RF Rx Instructions: swish and swallow azithromycin 250 mg tablet See Rx Instructions .ROUTE .COMPLEX Qty: 6 0RF Rx Instructions: For 250 mg dose pack: take 500 mg today (day 1), then 250 mg for 4 days (days 2-5) doxycycline hyclate 100 mg capsule 100 mg PO BID 7 Days Qty: 14 0RF Referrals: Beto Figueroa MD [Physician] - 05/28/23
[2023-05-26 01:06] LABS: Beta-Hydroxybutyrate 0.27 mmol/L (0.02-0.27)
[2023-05-26] MEDS: Insulin Regular, Human 100 UNIT/ML 3 ML VIAL 10 UNIT IVPUSH (01:17)
[2023-05-26] MEDS: 0.9 % Sodium Chloride 1,000 ML 999 ML IVCONT (01:18)
[2023-05-26 02:13] LABS: Glucose, Whole Blood 140 mg/dL (60-115)
[2023-05-26 02:20] VITALS: BP 144/89; PULSE 82; RESP 16; TEMP 36.7; O2SAT 98
== END 2023-05-26 02:36 | disposition home or self-care (01) ==
PROVIDERS: Emergency Provider Emergency Medicine; PCP Internal Medicine
DX: E11.65 Type 2 diabetes mellitus with hyperglycemia (principal); E11.40 Type 2 diabetes mellitus with diabetic neuropathy, unspecified; Z79.4 Long term (current) use of insulin
CPT/HCPCS: 36415; 80053; 81001; 82010; 82947; 85027; 96361; 96374; 99284

== ENCOUNTER 2023-05-27 22:50 | Emergency (ER) | payer OTHER, SELFPAY ==
--- NOTE | 2023-05-27 | ECG_ITS ---
Test Reason : CHEST PAIN Blood Pressure : / mmHG Vent. Rate : 094 BPM Atrial Rate : 094 BPM P-R Int : 138 ms QRS Dur : 090 ms QT Int : 352 ms P-R-T Axes : 075 048 040 degrees QTc Int : 440 ms Normal sinus rhythm Normal ECG No previous ECGs available Referred By: Generic ED Physician Electronically Signed By:JUAN JOSE CARSON MD
[2023-05-27 23:25] VITALS: BP 152/93; PULSE 94; RESP 18; TEMP 36.8; O2SAT 98; BMI 22.0
== END 2023-05-28 00:51 | disposition left against medical advice (07) ==
PROVIDERS: Emergency Provider Emergency Medicine; PCP Internal Medicine
DX: R07.9 Chest pain, unspecified (principal)
CPT/HCPCS: 93005; 99283

== ENCOUNTER → 2023-05-27 23:00 | Outpatient (BNV) | payer OTHER, SELFPAY | PROVIDERS: Emergency Provider Emergency Medicine; PCP Internal Medicine; Visit Provider Internal Medicine Cardiovascular Disease | DX: R07.9 Chest pain, unspecified (principal) | CPT/HCPCS: 93010 ==

== ENCOUNTER 2023-06-18 09:56 | Outpatient (AMB) | payer OTHER, SELFPAY ==
[2023-06-18 09:59] VITALS: BP 130/90; PULSE 122; BMI 21.7
--- NOTE | 2023-06-18 09:59 | MHC.OFFVIS ---
Intake Vital Signs 06/18/23 09:59 Height 5 ft 8 in Weight 142 lb 13.753 oz BMI 21.7 BP 130/90 H Blood Pressure Location Lt brachial Position Sitting Pulse 122 H Pulse Source Pulse Oximeter Intake Visit Reasons: DM-confirmed Intake Note: Patient presents today for ED follow up on D1MT. Last Diabetic Eye exam:Over 10 years ago Last Podiatry Visit:Doesn't have one. Random Glucose: 146 mg/dl HgA1c: 10.5% Die Storage Clerk Required: No Accompanied by: Spouse Allergies amoxicillin [AMOXICILLIN] Allergy (Unknown, Verified 06/18/23 10:05) VONITING clindamycin [CLINDAMYCIN] Allergy (Unknown, Verified 06/18/23 10:05) VOMITING Penicillins [PENICILLINS] Allergy (Unknown, Verified 06/18/23 10:05) VOMITING prednisone [PREDNISONE] Allergy (Unknown, Verified 06/18/23 10:05) RASH ITCHY Medication List - Last Reconciled 06/18/23 by Beto Figueroa MD gabapentin 100 mg PO TID insulin glargine (Lantus Solostar U-100 Insulin) 60 units subcut QAM HPI HPI Comments History of Present Illness Details 38 YO M who is seen in consultation for DM at the request of PCP. Initially diagnosed with T2DM in age 36 . Developed polyuria and polydypsia . Never seen endo Was initially started on treatment with []. Current regimen Lantus 60 units Humalog 15-30 units before meals . Per the [facility] CGMS is active 57 % of time . data the patient's predicted A1C is 7.7% Avg glucose is 185 . Variability of 18.9 The patient's blood sugars were in target 55% of the time, above target 45]% of the time, and below target 0% of the time. Patent shows increases after lunch and dinner with downward trend overnight Reports low sugars No . Family history of T2DM in does not know- adopted . Has eyes checked yearly, last eye exam hasn't seen in 10 yrs , denies retinopathy. Has neuropathy, not sees podiatry. Denies nephropathy,Not on UCHE/ARB.. Has HLD,Was on statin. Denies CAD. Not Had diabetes education. [facility] Medical History Diabetic neuropathy Type 2 diabetes mellitus Social History Alcohol intake: never Physical Exam Vital Signs: Last Vital Signs Pulse 122 H 06/18/23 09:59 BP 130/90 H 06/18/23 09:59 BMI result Body Mass Index 21.7 Absence of Cushingoid features. Absence of acromegalic features. Neck exam reveals nl size thyroid about 15 gms. No thyroid nodules palpable. No carotid bruits present. Lungs CTA. Heart S1 S2, Reg R/R. No M/R/ G. Skin exam reveals absence of vitiligo or acanthosis nigricans. Abdominal exam reveals Soft NT/ND with NA BS. No organomegaly present. Neck Other: . Extrem Other: Visual exam of foot performed. No ulcerations or open lesions. No onchomycosis, no callouses.Pulses 2 + distally Sensation intact to monofilament exam. Vibratory sensation sensed is decreased t with 128 Hz tuning fork Results AMB Hemoglobin A1c AMB Hemoglobin A1c 10.5 % Last Edit by SANDOR Nolen on 06/18/23 10:19 Results Reviewed Results Reviewed: Laboratory Last Values Glucose (Clinic) 146 mg/dL (60-115) H 06/18/23 10:09 Assessment & Plan Assessment & Plan (1) Type 2 diabetes mellitus: Code(s): E11.9 - Type 2 diabetes mellitus without complications Plan: Is a 38-year-old white male with a history of diabetes being treated with basal insulin with poor glycemic control and no known microvascular or macrovascular complications Plan is to send the patient to a in service educator and tufting machine operator. Will check lipid profile and microalbumin to creatinine ratio. Went over with patient the correlation of poor glycemic control to development and progression complications. I will also check anti-jean pierre 65 antibodies to rule out type 1 and will also obtain a CT scan of the abdomen with reference to the pancreas to rule out a pancreatic neoplasm considering the presentation of weight loss, lack of appetite abdominal pain with new onset diabetes . I have also taken the liberty referring the patient to a neurologist for workup neuropathic pain as the pain is out of proportion to findings on the foot examination. Lastly patient was instructed to make an appointment with Ophthalmology. Once a secondary workup for type [address] scan return, further adjustment of diabetic regimen will take place Orders: Orders Lipid Panel Today E11.9 - Type 2 diabetes mellitus without complications Microalbumin, Random (w Creat) Today E11.9 - Type [address] without complications [address] abdomen w IV con Today E11.9 - Type 2 diabetes mellitus without complications Glutamic acid decarboxylase Ab Today E11.9 - Type 2 diabetes mellitus without complications AMB Hemoglobin A1c Today E11.9 - Type 2 diabetes mellitus without complications, Z13.9 - Encounter for screening, unspecified Referrals Nutrition/Dietitian Referral E11.9 - Type 2 diabetes mellitus without complications Neurology Referral E11.9 - Type 2 diabetes mellitus without complications Diabetes Education Referral E11.9 - Type 2 diabetes mellitus without complications Coding Level of Care Code New Pt Level 5 (60640) Diagnoses Type 2 diabetes mellitus E11.9
[2023-06-18 10:14] LABS: Glucose, Whole Blood 146 mg/dL (60-115)
== END 2023-06-18 10:43 | disposition home or self-care (01) ==
PROVIDERS: PCP Internal Medicine; Visit Provider Internal Medicine Endocrinology, Diabetes & Metabolism
DX: E11.9 Type 2 diabetes mellitus without complications (principal); Z13.9 Encounter for screening, unspecified
CPT/HCPCS: 99204

== ENCOUNTER → 2023-06-18 09:56 | Outpatient (BNVA) | payer OTHER, SELFPAY | PROVIDERS: PCP Internal Medicine; Visit Provider Internal Medicine Endocrinology, Diabetes & Metabolism | DX: E11.9 Type 2 diabetes mellitus without complications (principal); E78.5 Hyperlipidemia, unspecified | CPT/HCPCS: 82947; 83036; 99202 ==

== ENCOUNTER 2023-06-19 23:26 | Emergency (ER) | payer OTHER, SELFPAY ==
--- NOTE | 2023-06-19 | ECG_ITS ---
Test Reason : CHEST PAIN Blood Pressure : / mmHG Vent. Rate : 098 BPM Atrial Rate : 098 BPM P-R Int : 138 ms QRS Dur : 082 ms QT Int : 358 ms P-R-T Axes : 072 053 033 degrees QTc Int : 457 ms Normal sinus rhythm Normal ECG When compared with ECG of 27-MAY-2023 23:00, No significant change was found Referred By: Generic ED Physician Electronically Signed By:JUAN JOSE CARSON MD
[2023-06-19 23:39] VITALS: BP 141/97; PULSE 106; RESP 18; TEMP 37.1; O2SAT 100; BMI 21.4
[2023-06-20 05:50] VITALS: BP 149/102; PULSE 98; RESP 18; TEMP 37.2; O2SAT 96
--- NOTE | 2023-06-20 07:04 | ED.DENTAL ---
HPI - Dental/Oral General Chief complaint: Dental/Oral Stated complaint: Chipped tooth Time Seen by Provider: 06/20/23 07:03 Source: patient Mode of arrival: ambulatory Limitations: no limitations History of Present Illness HPI Narrative: About a week ago filling fell out in left lower molar, now with increased pain and swelling Complaint: tooth pain Teeth map: 1. 2. Onset (ago): week(s) Duration: constant Severity: mild Related Data Home Medications Medication Instructions Recorded Confirmed insulin glargine 100 unit/mL (3 60 unit subcut QAM 06/18/23 mL) subcutaneous pen (Lantus Solostar U-100 Insulin) Previous Rx's Medication Instructions Recorded gabapentin 100 mg capsule 100 mg PO TID #90 caps 05/26/23 naproxen 500 mg tablet (Naprosyn) 500 mg PO BID #20 tabs 06/20/23 sulfamethoxazole 800 1 tab PO BID #14 tabs 06/20/23 mg-trimethoprim 160 mg tablet (Bactrim DS) Allergies Allergy/AdvReac Type Severity Reaction Status Date / Time amoxicillin [AMOXICILLIN] Allergy Unknown VONITING Verified 06/19/23 23:39 clindamycin [CLINDAMYCIN] Allergy Unknown VOMITING Verified 06/19/23 23:39 Penicillins [PENICILLINS] Allergy Unknown VOMITING Verified 06/19/23 23:39 prednisone [PREDNISONE] Allergy Unknown RASH ITCHY Verified 06/19/23 23:39 Review of Systems Review of Systems: Yes all other systems are reviewed and are negative Neurologic: Denies Sensory deficit (Neuro) [facility] Past Medical History Medical History Diabetic neuropathy Type 2 diabetes mellitus Social History Social History Alcohol intake: never Advance Directives: No Advance Directives Information Provided: No Physical Exam Vital Signs: Vital Signs: Last Vital Signs Temp 99 F 06/20/23 05:50 Pulse 98 06/20/23 05:50 Resp 18 06/20/23 05:50 BP 149/102 H 06/20/23 05:50 Pulse Ox 96 06/20/23 05:50 O2 Del Method Room Air 06/20/23 05:50 BMI result Body Mass Index 21.4 Const: General: healthy appearing Nutritional Appearance: average body habitus Orientation/consciousness: oriented to person and patient oriented x3 Limitations: no limitations HEENT: Other: left lower molar with missing filling, no swelling or erythema appreciated Head: Yes normal to inspection Ears: external ears normal General nose exam: Normal external nose present Mouth: Normal oral and palatal mucosa present and oropharynx normal Throat: Yes posterior oropharynx normal Eyes: General: appearance normal, both eyes and all related structures Neck: Other: supple Neck: Yes normal visual inspection Chest: Chest palpation & inspection: normal inspection of the chest Resp: Auscultation: clear to auscultation bilaterally Cardio: Jugular venous distension: no JVD Rate: regular rate Rhythm: regular rhythm Heart sounds: S1 normal heart sound present and S2 normal heart sound present GI: Inspection: Yes normal to inspection Palpation (GI): Soft to palpation, nontender and No hepatosplenomegaly present Auscultation: normal bowel sounds : General: Yes no CVA tenderness Back/Spine/Pelvis: Back: no CVA tenderness Skin: General skin exam: no rashes or lesions noted Neuro: General: oriented to person and patient oriented x3 Cranial nerves: Yes CN's II-XII intact bilaterally Motor exam (neuro): 5/5 motor strength present throughout Sensory Exam: No Sensory deficit (Neuro) Extrem: General: Yes normal to inspection Psych: Appearance: grossly normal Course Reevaluation(s) Reevaluation #1: will place on abx and nsaids and dc home Time: 07:12 Medical Decision Making Differential Diagnosis Differential Diagnoses: The differential diagnosis associated with the presentation includes (dental caries, dental abscess, dental infection were all considered) Tests considered The following testing was considered but not selected: I would have obtained a panorex of teeth but non available Chronic Conditions Patient?s care impacted by: Diabetes Social Determinants Patient?s care significantly limited by Social Determinants of Health including: Low income Discharge Plan Discharge Clinical Impression: Dental caries, Toothache Patient Disposition: Home, Self-Care Instructions: Toothache (ED) Prescriptions: New sulfamethoxazole-trimethoprim [Bactrim DS] 800-160 mg tablet 1 tab PO BID Qty: 14 0RF naproxen [Naprosyn] 500 mg tablet 500 mg PO BID Qty: 20 0RF No Action gabapentin 100 mg capsule 100 mg PO TID Qty: 90 0RF insulin glargine [Lantus Solostar U-100 Insulin] 100 unit/mL (3 mL) insulin pen 60 unit subcut QAM
[2023-06-20 07:25] VITALS: BP 149/102; PULSE 98; RESP 16; TEMP 37.2; O2SAT 96
== END 2023-06-20 07:26 | disposition home or self-care (01) ==
PROVIDERS: Emergency Provider Emergency Medicine; PCP Internal Medicine
DX: K02.9 Dental caries, unspecified (principal); K08.89 Other specified disorders of teeth and supporting structures; E11.9 Type 2 diabetes mellitus without complications; Z88.0 Allergy status to penicillin; Z88.1 Allergy status to other antibiotic agents; Z88.8 Allergy status to other drugs, medicaments and biological substances
CPT/HCPCS: 93005; 99282; 99283

== ENCOUNTER → 2023-06-19 23:50 | Outpatient (BNV) | payer OTHER, SELFPAY | PROVIDERS: Emergency Provider Emergency Medicine; PCP Internal Medicine; Visit Provider Internal Medicine Cardiovascular Disease | DX: R07.9 Chest pain, unspecified (principal) | CPT/HCPCS: 93010 ==

== ENCOUNTER 2023-06-25 10:02 | Outpatient (AMB) | payer OTHER, SELFPAY ==
--- NOTE | 2023-06-25 10:14 | A.OFFVIS_ITS ---
Intake VS Expanded 06/25/23 10:15 06/28/23 11:11 Height 5 ft 8 in 5 ft 8 in Weight 144 lb 6.444 oz 144 lb BMI 22.0 21.9 Intake Visit Reasons: DM/LVM Allergies amoxicillin [AMOXICILLIN] Allergy (Unknown, Verified 06/19/23 23:39) VONITING clindamycin [CLINDAMYCIN] Allergy (Unknown, Verified 06/19/23 23:39) VOMITING Penicillins [PENICILLINS] Allergy (Unknown, Verified 06/19/23 23:39) VOMITING prednisone [PREDNISONE] Allergy (Unknown, Verified 06/19/23 23:39) RASH ITCHY HPI Nutrition Presentation Details Pt presents for MNT for T2DM. Pt was referred by Dr. Figueroa, oracle programmer. Pt is currently on Lantus 60 units and Humalog 15-20 units with meals. Pt reports having pending lab for GAD65 antibody test to rule out T1 DM. Pt reports weight loss of > 100 lbs over a year. Pt reports typically having 2 meals a day and snacks throughout the day. Pt reports meals vary between fast food meals or homemade meals (pasta/rice/chicken, veg). Pt admits to skipping insulin dosages in the past. Pt denies vomiting denies diarrhea Pt reports main beverages are fruit juices, diet sodas, water Meals consist of breakfast sandwich in AM Lunch typically skips or may have fast food meal (burger/fries/diet soda) dinner: pasta/chicken/spaghetti sauce or pizza, water or diet soda snack: sometimes cereal with milk or cookies milk fish: 0-1/wk milk: 2+ serving/d fruits: juices mainly 2+ serving/d vege: 1-2serving/wk MBA-Mqhkins-Js.Jeor Equation Height 5 ft 8 in Weight 144 lb Resting Metabolic Rate 1540.22 Calculated Activity Level Moderate Activity Calories Needed to Maintain Weight 2387.34 Diagnosis Nutrition problem #1 food nutri know defi As related to (etiology) #1 diagnosis As evidenced by (sign/symptom) #1 knowledge deficit of diet Most Recent Diabetes Results: Creatinine 0.84 mg/dL (0.5-1.4) 05/25/23 Blood Urea Nitrogen 12 mg/dL (9-16) 05/25/23 Sodium 138 mmol/L (135-145) 05/25/23 Potassium 4.4 mmol/L (3.3-5.1) 05/25/23 Chloride 101 mmol/L (96-108) 05/25/23 Carbon Dioxide 26 mmol/L (22-29) 05/25/23 Calcium 9.8 mg/dL (8.4-10.2) 05/25/23 AST 13 U/L (5-37) 05/25/23 ALT 19 U/L (0-40) 05/25/23 Total Protein 7.1 g/dL (6.5-8.0) 05/25/23 Albumin 4.6 g/dL (3.5-5.0) 05/25/23 PFSH Medical History Diabetic neuropathy Type 2 diabetes mellitus Social History Alcohol intake: never Assessment & Plan Assessment & Plan (1) Type 2 diabetes mellitus: Code(s): E11.9 - Type 2 diabetes mellitus without complications Plan: Wt: 65.4 Kg (06/2023 ) Est kcal needs as per MSJ: 2400 (40% carb, 30% protein/fat) Est fluid needs as per 25-30 ml/d: 2000 Est prot per day as per 1 g/kg bw: 65 Recommend fiber intake : 8-10 g per day and gradually increase to 25-28 g per day for women and 35-38 g for men or as tolerated Recommend sodium intake per day: less than 2000 mg Educated patient on: ( R = reviewed V = verbalizes understanding N/R = needs review N/A = not applicable * Food sources of carbohydrate, adequate serving sizes and its role in various health conditions: R * Differences between complex carbohydrates a simple carbohydrates, role of fiber in diet: N/R * Lean protein sources of foods: R * Differences between types of fats and role in diet (mono on saturated fat fatty acids, saturated fatty acids, trans fats): N/R * Food sources of sodium in salt and healthy modifications for heart health in kidney health: NR * Vitamins and minerals: R V N/R * Healthy plate method concept: R * Physical activity: Benefits a precaution: N/R * Hypoglycemia protocol (rule of 15): R * Dietary prevention of Hyperglycemia: R Patient Instructions: Work on balancing your meals by following the healthy plate method - see meals ideas consisting of 60-80 g of carbs per meal /prote/non starchy veg Become familiar with grams of carbohydrate per serving size of different foods Take a nutritional supplement at least once a day (premier protein, ensure max , fairlife high protein as example) as a snack (coupons for nutritional supplement provided) Have a cup of milk in place of juice for lower carb and at higher protein choice take all your dm medications as prescribed by your doctor Coding Level of Care Code Nutr Indiv Intake (56735) Diagnoses Type 2 diabetes mellitus E11.9 Time Spent (min) 30
[2023-06-25 10:15] VITALS: BMI 22.0
[2023-06-28 11:11] VITALS: BMI 21.9
== END 2023-06-25 11:15 | disposition home or self-care (01) ==
PROVIDERS: PCP Internal Medicine; Visit Provider Dietitian, Registered
DX: E11.9 Type 2 diabetes mellitus without complications (principal)

== ENCOUNTER → 2023-06-25 10:02 | Outpatient (BNVA) | payer OTHER, SELFPAY | PROVIDERS: PCP Internal Medicine; Visit Provider Dietitian, Registered | DX: E11.9 Type 2 diabetes mellitus without complications (principal) | CPT/HCPCS: 97802 ==

== ENCOUNTER 2023-07-03 10:49 | Outpatient (AMB) | payer OTHER, SELFPAY ==
--- NOTE | 2023-07-03 11:37 | A.OFFVIS_ITS ---
Intake Intake Visit Reasons: DM Manager Lvn Required: No Accompanied by: Self / Same As Patient Allergies amoxicillin [AMOXICILLIN] Allergy (Unknown, Verified 06/19/23 23:39) VONITING clindamycin [CLINDAMYCIN] Allergy (Unknown, Verified 06/19/23 23:39) VOMITING Penicillins [PENICILLINS] Allergy (Unknown, Verified 06/19/23 23:39) VOMITING prednisone [PREDNISONE] Allergy (Unknown, Verified 06/19/23 23:39) RASH ITCHY HPI Comprehensive Diabetes Asmnt Most Recent Diabetes Results: Creatinine 0.84 mg/dL (0.5-1.4) 05/25/23 Blood Urea Nitrogen 12 mg/dL (9-16) 05/25/23 Sodium 138 mmol/L (135-145) 05/25/23 Potassium 4.4 mmol/L (3.3-5.1) 05/25/23 Chloride 101 mmol/L (96-108) 05/25/23 Carbon Dioxide 26 mmol/L (22-29) 05/25/23 Calcium 9.8 mg/dL (8.4-10.2) 05/25/23 AST 13 U/L (5-37) 05/25/23 ALT 19 U/L (0-40) 05/25/23 Total Protein 7.1 g/dL (6.5-8.0) 05/25/23 Albumin 4.6 g/dL (3.5-5.0) 05/25/23 [facility] Medical History Diabetic neuropathy Type 2 diabetes mellitus Social History Alcohol intake: never Assessment & Plan Assessment & Plan (1) Type 2 diabetes mellitus: Code(s): E11.9 - Type 2 diabetes mellitus without complications Plan: Learning objectives: The patient was provided with verbal and written education on the following topics as outlined below. The patient met all learning objectives and was able to verbalize understanding and provide teach back of education topics discussed . The patient was provided with the opportunity to ask questions and all questions were answered. Patient Assessment Assess patient education level/literacy/barriers Patient questions/concerns, patient diagnosed with diabetes approximately 2 years ago, last A1c on 06/18/2023 10.5%. Patient has seen registered dietitian Currently is only taking Lantus 30 units has not been taking Humalog due to fear of hypoglycemia. Patient still has not had jean pierre antibody test drawn Patient reports he is interested in insulin pump What is Diabetes? Pathophysiology How the body produces and uses insulin Identify type of DM Risk factors Signs of Diabetes Brief overview of Diabetes Management Monitoring blood sugar Following a meal plan Regular exercise Maintaining a healthy weight Taking medication as needed Members of the care team (PCP, RN, MA, RD, CDE, landscape photographer) Blood glucose monitoring When/how often to test Target blood sugar ranges Patient using freestyle Rose 3 Average glucose for the past 2 weeks 172 mg/dL Above target 34% At target 66% Below target 0% Introduction to Nutrition Importance of healthy diet in managing DM Diet is personalized to individual preference Review patient?s regular diet/food preferences Who prepares meals/does food shopping/ Dining out?/ Barriers? How diet effects glucose Eating 3 balanced meals a day with small, healthy snacks between meals Review food groups Carbohydrates: What is a carbohydrate/Which food/food groups are considered carbohydrates Effect of carbohydrates on blood glucose Portion sizes Reading food labels Basic carb counting (if applicable per nursing assessment) Plate method Meal planning Recommendations: Follow plate method, consistent carbs and read nutritional labels. Smart Goal: Patient keep meals between 60 to 80 g of carbohydrate Educational Materials: The patient was provided with the following written educational materials: Planning Healthy Meals Handout Patient Response to instructions: Comprehension of Instructions: Fair Readiness to make changes: Contemplation How confident they feel about making changes: Positive Patient Instructions: Include regular daily activity. ADA recommends 30 minutes of exercise 5 days a week. Weight loss talk to PCP or Publications Sales Representative before starting new plan. Test blood sugar as directed; Fasting and 2hpp largest meal. Watch trends in results. Utilize results and to assess how food, physical activity and medications affect blood sugar results. Bring glucometer or CGM to next visit. Be knowledgeable about diabetes medication, its action, side effects, efficacy, toxicity, prescribed dosage, appropriate timing and frequency of administration, effect of missed and delayed doses and instructions for storage, travel and safety. Problem solving techniques to monitor hypo/hyperglycemia episodes and treatments. Reduce risk reduction behaviors, smoking cessation, regular eye, foot and dental examinations. Follow-up with Diabetes Education nurse in 1 month Coding Level of Care Code Est Pt Level 1 (51805) Diagnoses Type 2 diabetes mellitus E11.9
== END 2023-07-03 11:46 | disposition home or self-care (01) ==
PROVIDERS: PCP Internal Medicine; Visit Provider Registered Nurse Diabetes Educator
DX: E11.9 Type 2 diabetes mellitus without complications (principal)

== ENCOUNTER → 2023-07-03 10:49 | Outpatient (BNVA) | payer OTHER, SELFPAY | PROVIDERS: PCP Internal Medicine; Visit Provider Registered Nurse Diabetes Educator | DX: E11.9 Type 2 diabetes mellitus without complications (principal); Z79.4 Long term (current) use of insulin | CPT/HCPCS: 99211 ==

== ENCOUNTER 2023-07-09 13:40 | Emergency (ER) | payer OTHER, SELFPAY ==
[2023-07-09 13:48] VITALS: BP 156/100; PULSE 108; O2SAT 98
[2023-07-09 14:35] VITALS: BP 163/101; PULSE 91; RESP 18; TEMP 36.7; O2SAT 99; BMI 20.5
--- NOTE | 2023-07-09 14:36 | ED_ITS ---
HPI - Abdominal Pain General Chief Complaint: Abdominal Pain Stated Complaint: ABD PAIN Related Data Home Medications ?Medication ?Instructions ?Recorded ?Confirmed insulin glargine 100 unit/mL (3 60 unit subcut QAM 06/18/23 mL) subcutaneous pen (Lantus Solostar U-100 Insulin) Previous Rx's ?Medication ?Instructions ?Recorded gabapentin 100 mg capsule 100 mg PO TID #90 caps 05/26/23 naproxen 500 mg tablet (Naprosyn) 500 mg PO BID #20 tabs 06/20/23 sulfamethoxazole 800 1 tab PO BID #14 tabs 06/20/23 mg-trimethoprim 160 mg tablet (Bactrim DS) blood-glucose sensor (FreeStyle #2 ea 07/03/23 Rose 3 Sensor device) Allergies Allergy/AdvReac Type Severity Reaction Status Date / Time amoxicillin [AMOXICILLIN] Allergy Unknown VONITING Verified 07/09/23 14:37 clindamycin [CLINDAMYCIN] Allergy Unknown VOMITING Verified 07/09/23 14:37 Penicillins [PENICILLINS] Allergy Unknown VOMITING Verified 07/09/23 14:37 prednisone [PREDNISONE] Allergy Unknown RASH ITCHY Verified 07/09/23 14:37 [facility] Past Medical History Medical History Diabetic neuropathy Type 2 diabetes mellitus Social History Social History Alcohol intake: never Advance Directives: No Advance Directives Information Provided: No Do you have a plan to hurt others: No Plan Physical Exam ED Vital Signs: Vital Signs - 24 hr 07/09/23 14:35 Temperature 98.0 F Pulse Rate 91 Respiratory Rate 18 Blood Pressure 163/101 H Pulse Oximetry 99 Oxygen Delivery Method Room Air BMI result Body Mass Index 20.5 Course Course Course Narrative: This is a rapid medical exam. Defer additional HPI, ROS, PE to primary provider. 38-year-old male with a history of diabetes presents with right-sided abdominal pain for several days. + diarrhea. No vomiting, fever. Will check labs, UA VSS Discharge Plan Discharge Clinical Impression: Abdominal pain Patient Disposition: Left W/O Completing Treatment Prescriptions: No Action (DME) FreeStyle Rose 3 Sensor Device See Rx Instructions .Route Qty: 2 4RF Rx Instructions: As directed change every 14 days gabapentin 100 mg capsule 100 mg PO TID Qty: 90 0RF sulfamethoxazole-trimethoprim [Bactrim DS] 800-160 mg tablet 1 tab PO BID Qty: 14 0RF naproxen [Naprosyn] 500 mg tablet 500 mg PO BID Qty: 20 0RF insulin glargine [Lantus Solostar U-100 Insulin] 100 unit/mL (3 mL) insulin pen 60 unit subcut QAM
--- NOTE | 2023-07-09 16:08 | MHC.EDTECH ---
This pct attempted to draw labs but the patient has left without being seen. RN Aware
== END 2023-07-09 18:41 | disposition left against medical advice (07) ==
PROVIDERS: Emergency Provider Emergency Medicine
DX: R10.9 Unspecified abdominal pain (principal); E11.9 Type 2 diabetes mellitus without complications
CPT/HCPCS: 99281

== ENCOUNTER 2023-07-12 08:32 | Emergency (ER) | payer OTHER, SELFPAY ==
[2023-07-12 08:36] VITALS: BP 156/95; PULSE 100; RESP 18; TEMP 36.5; O2SAT 100; BMI 20.8
[2023-07-12 10:28] LABS: Appearance Urine Clear; Color Urine Yellow; Glucose Urine UA Negative (Negative); Leukocyte Esterase Urine Negative (Negative); Nitrite Urine Negative (Negative); PH 5.5 (5.0-9.0); Specific Gravity - Urine 1.015 (1.005-1.025); Urine Blood Negative (Negative); Urine Ketones Negative (Negative); Urine Protein Negative (Neg-Trace)
--- NOTE | 2023-07-12 10:30 | ED_ITS ---
HPI - Male Genitourinary General Chief complaint: Urogenital-Male Stated complaint: Painful urination Time Seen by Provider: 07/12/23 10:04 Source: patient Mode of arrival: ambulatory Limitations: no limitations History of Present Illness HPI Narrative: 38-year-old male history of insulin-dependent diabetes complicated with diabetic peripheral neuropathy came in for 2 days symptoms of dysuria and decreasing amount of urine out about. Patient otherwise declined fever, chills, nausea, vomiting, abdominal pain, and flank pain. Sexually active with 1 partner for 16 years with no risk of STD, no urethral discharge. Related Data Home Medications ?Medication ?Instructions ?Recorded ?Confirmed insulin glargine 100 unit/mL (3 60 unit subcut QAM 06/18/23 mL) subcutaneous pen (Lantus Solostar U-100 Insulin) Previous Rx's ?Medication ?Instructions ?Recorded gabapentin 100 mg capsule 100 mg PO TID #90 caps 05/26/23 naproxen 500 mg tablet (Naprosyn) 500 mg PO BID #20 tabs 06/20/23 sulfamethoxazole 800 1 tab PO BID #14 tabs 06/20/23 mg-trimethoprim 160 mg tablet (Bactrim DS) blood-glucose sensor (FreeStyle #2 ea 07/03/23 Rose 3 Sensor device) Allergies Allergy/AdvReac Type Severity Reaction Status Date / Time amoxicillin [AMOXICILLIN] Allergy Intermediate Vomiting Verified 07/12/23 08:37 clindamycin [CLINDAMYCIN] Allergy Intermediate VOMITING Verified 07/12/23 08:37 Penicillins [PENICILLINS] Allergy Intermediate VOMITING Verified 07/12/23 08:37 prednisone [PREDNISONE] Allergy Intermediate RASH ITCHY Verified 07/12/23 08:37 Sulfa (Sulfonamide Allergy Intermediate Unknown Verified 07/12/23 08:37 Antibiotics) Review of Systems 2 Review of Systems: All other systems are reviewed and are negative Constitutional: Reports as per HPI and Reports no additional constitutional complaints Eyes: Reports as per HPI and Reports no additional eye complaints Reports system reviewed and no additional complaints, except as documented Cardiovascular: Reports as per HPI and Reports no additional cardiovascular complaints Respiratory: Reports as per HPI and Reports no additional respiratory complaints Gastrointestinal: Reports as per HPI and Reports no additional gastrointestinal complaints Genitourinary: Reports no additional female genitourinary complaints Musculoskeletal: Reports no additional musculoskeletal complaints Skin/Breast: Reports system reviewed and no additional complaints, except as docu Psychiatric: Reports no additional psychiatric complaints Endocrine: Reports no additional endocrine complaints Hematologic/Lymphatic: Reports no additional hematologic/lymphatic complaints Allergic/Immunologic: Reports no additional allergic/immunologic complaints Reports system reviewed and no additional complaints, except as documented and Reports Abnormal speech present [facility] Past Medical History Medical History Diabetic neuropathy Type 2 diabetes mellitus Social History Social History Alcohol intake: never Smoked in Last 30 Days: Yes Use of substances other than those prescribed or required for medical reasons: No Advance Directives: No Advance Directives Information Provided: No Do you have a plan to hurt others: No Plan Physical Exam 2 Vital Signs: Vital Signs: Last Vital Signs Temp 98.1 F 07/12/23 11:56 Pulse 80 07/12/23 11:56 Resp 16 07/12/23 11:56 BP 169/94 H 07/12/23 11:56 Pulse Ox 100 07/12/23 11:56 O2 Del Method Room Air 07/12/23 11:56 BMI result Body Mass Index 20.8 Vital signs have been reviewed and appear to be correct. Blood pressure elevated. Heart rate normal. Respiratory rate normal. Temperature normal. Oxygen saturation normal. Appearance: Alert. Oriented X3. No acute distress. Head: Normal external exam. Normocephalic. Atraumatic. No Rich signs noted. No raccoon eyes noted Eyes: PERRLA. EOMI. Conjunctiva and sclera normal. Eyelids normal. ENT: TM's Normal. Pharynx normal. Uvula midline. Moist mucous membranes. No trismus noted. No drooling noted. No muffled voice noted. Neck: Normal inspection. Neck supple. FROM. No adenopathy. Thyroid Normal. No meningeal signs. No neck mass noted. CVS: Normal heart rate and rhythm. Heart sound normal. No murmurs noted. Pulses normal throughout. Respiratory: No respiratory distress. Painless inspiration. Breath sounds normal. No wheezes/rales/rhonchi noted. Chest nontender. No accessory muscle usage noted or decreased air movement noted. Abdomen: Soft and nontender. Bowel sounds normal in all 4 quadrants. No distention noted. No organomegaly noted. No visible injury noted. Back: No CVA tenderness. Full range of motion noted. Skin: Skin warm and dry. Normal skin color. Normal skin turgor. No rashes/lesions/lacerations noted. Extremities: No lower extremity edema. Extremities exhibit normal range of motion. Extremities nontender. Neuro: Oriented X 3. Cranial nerve exam: II-XII are grossly intact No motor deficit. No sensory deficit. Reflexes normal. Course Reevaluation(s) Reevaluation #1: 38-year-old male with history of T2 dm insulin-dependent came in with symptoms of dysuria and decreased urine output, today's labs reveals a normal kidney function test, UA is negative for UTI patient is negative for STDs. Patient appear anxious about his general health, patient is scheduled to have colonoscopy because of loss of weight and patient is concern of having cancer, patient was instructed to follow-up with his PCP. Blood pressure also found to be elevated patient is asymptomatic, no headache, no blurry vision, no CP, no SOB. At this point no emergent intervention is needed in the emergency department patient just needs to follow-up with PCP. Time: 12:27 Medications Administered Discontinued Medications Generic Name Dose Route Start Last Admin Trade Name Freq PRN Reason Stop Dose Admin Acetaminophen 650 mg 07/12/23 10:58 07/12/23 11:06 Acetaminophen 325 Mg Tablet PO 07/12/23 10:59 650 mg ONCE ONE Administration Sodium Chloride 1,000 mls @ 999 mls/hr 07/12/23 10:29 07/12/23 12:11 Ns IV 07/12/23 11:29 Infused .Q1H1M ONE Infusion Medical Decision Making Differential Diagnosis Differential Diagnoses: The differential diagnosis associated with the presentation includes (UTI, STDs, ABILIO, electrolyte derangement, severe anemia, hyperglycemia.) Admission/Observation Consideration of admission/observation: Escalation of care including admission/observation considered Lab Data MDM Lab Attestation statement: I reviewed the patient's lab results. 07/12/23 10:47 07/12/23 10:47 Labs: Lab Results 07/12/23 07/12/23 07/12/23 Range/Units 09:04 10:19 10:47 WBC 6.8 (4.8-10.8) X10*3/uL RBC 5.32 (4.60-5.80) X10*6/uL Hgb 10.9 L (14.0-18.0) g/dl Hct 33.1 L (42.0-52.0) % MCV 62.2 L (80.0-98.0) fL MCH 20.5 L (27.0-33.0) pg MCHC 32.9 (31.0-36.0) g/dl RDW 15.1 (11.0-16.0) % Plt Count 244 (160-400) X10*3/uL MPV 10.0 (9.4-12.4) fL Immature Gran % (Auto) 0.3 (0.0-0.4) % Neut % (Auto) 55.0 (45-73) % Lymph % (Auto) 37.5 (20-40) % [place] % (Auto) 5.7 (2-11) % Eos % (Auto) 0.9 (0-4) % Baso % (Auto) 0.6 (0-2) % Lymph # (Auto) 2.6 (1.2-4.9) X10*3/uL [place] # (Auto) 0.4 (0.1-1.2) X10*3/uL Eos # (Auto) 0.1 (0.0-0.4) X10*3/uL Baso # (Auto) 0.0 (0.0-0.2) X10*3/uL Abs Immat Gran (auto) 0.02 (0.00-0.03) X10*3/uL Absolute Neuts (auto) 3.7 (2.0-8.3) x10*3/uL Absolute Nucleated RBC 0.000 (0.0-0.012) X10*3/uL Nucleated RBC % (auto) 0.0 (0.0-0.2) /100WBC Sodium 137 (135-145) mmol/L Potassium 4.2 (3.3-5.1) mmol/L Chloride 104 (96-108) mmol/L Carbon Dioxide 29 (22-29) mmol/L Anion Gap 8 L (12-20) BUN 15 (9-16) mg/dL Creatinine 0.76 (0.5-1.4) mg/dL Estim Creat Clear Calc 113.4 Estimated GFR > 60 Random Glucose 136 H (60-115) mg/dL Calcium 9.5 (8.4-10.2) mg/dL Total Bilirubin 0.6 (0.0-1.0) mg/dL Direct Bilirubin 0.2 (0.0-0.5) mg/dL AST 11 (5-37) U/L ALT 14 (0-40) U/L Alkaline Phosphatase 46 (39-117) U/L Total Protein 6.8 (6.5-8.0) g/dL Albumin 4.5 (3.5-5.0) g/dL Lipase 18 (8-78) U/L Urine Color Yellow Urine Appearance Clear Urine pH 5.5 (5.0-9.0) Ur Specific [place] 1.015 (1.005-1.025) Urine Protein Negative (Neg-Trace) mg/dL Urine Glucose (UA) Negative (Negative) mg/dL Urine Ketones Negative (Negative) mg/dL Urine Blood Negative (Negative) Urine Nitrite Negative (Negative) Ur Leukocyte Esterase Negative (Negative) Chlam trachomat DNA PCR NOT DETECTED (Not Detect.) N.gonorrhoeae DNA (PCR) NOT DETECTED (Not Detect.) Chronic Conditions Patient?s care impacted by: Diabetes Discharge Plan Discharge Clinical Impression: Type 2 diabetes mellitus, Dysuria, Anxiety about health Patient Disposition: Home, Self-Care Instructions: Dysuria (ED) Prescriptions: No Action (DME) FreeStyle Rose 3 Sensor Device See Rx Instructions .Route Qty: 2 4RF Rx Instructions: As directed change every 14 days gabapentin 100 mg capsule 100 mg PO TID Qty: 90 0RF sulfamethoxazole-trimethoprim [Bactrim DS] 800-160 mg tablet 1 tab PO BID Qty: 14 0RF naproxen [Naprosyn] 500 mg tablet 500 mg PO BID Qty: 20 0RF insulin glargine [Lantus Solostar U-100 Insulin] 100 unit/mL (3 mL) insulin pen 60 unit subcut QAM Print Language: Zimbabwean
[2023-07-12] MEDS: 0.9 % Sodium Chloride 1,000 ML 999 ML IV (10:49)
[2023-07-12 10:56] LABS: MANUAL DIFF FLAG NO
[2023-07-12 11:01] LABS: Basophils Percent Auto 0.6 % (0-2); Eosinophils Absolute Auto 0.1 X10*3/uL (0.0-0.4); Eosinophils Percent Auto 0.9 % (0-4); Hematocrit 33.1 % (42.0-52.0); Hemoglobin 10.9 g/dl (14.0-18.0); Imm Gran Abs Auto 0.02 X10*3/uL (0.00-0.03); Imm Gran Pct Auto 0.3 % (0.0-0.4); Lymphocytes Absolute Auto 2.6 X10*3/uL (1.2-4.9); Lymphocytes Percent Auto 37.5 % (20-40); Mean Corpuscular HGB Conc 32.9 g/dl (31.0-36.0); Mean Corpuscular Hemoglobin 20.5 pg (27.0-33.0); Monocytes Absolute Auto 0.4 X10*3/uL (0.1-1.2); Monocytes Percent Auto 5.7 % (2-11); Neutrophils Absolute Auto 3.7 x10*3/uL (2.0-8.3); Platelet Count 244 X10*3/uL (160-400); Red Blood Count 5.32 X10*6/uL (4.60-5.80); Red Cell Distribution Width 15.1 % (11.0-16.0); White Blood Count 6.8 X10*3/uL (4.8-10.8)
[2023-07-12] MEDS: Acetaminophen 325 MG TABLET 650 MG PO (11:06)
[2023-07-12 11:13] LABS: Alanine Aminotransferase 14 U/L (0-40); Albumin Level 4.5 g/dL (3.5-5.0); Alkaline Phosphatase 46 U/L (39-117); Anion Gap 8 (12-20); Aspartate Amino Transferase 11 U/L (5-37); Bilirubin Direct 0.2 mg/dL (0.0-0.5); Bilirubin Total 0.6 mg/dL (0.0-1.0); Blood Urea Nitrogen 15 mg/dL (9-16); Calcium 9.5 mg/dL (8.4-10.2); Carbon Dioxide 29 mmol/L (22-29); Chloride 104 mmol/L (96-108); Creatinine Clr Calc Pharmacy 113.4; Estimated Glomerular Filt Rate > 60; Glucose Random 136 mg/dL (60-115); Lipase 18 U/L (8-78); Potassium 4.2 mmol/L (3.3-5.1); Sodium 137 mmol/L (135-145); Total Protein 6.8 g/dL (6.5-8.0)
--- NOTE | 2023-07-12 11:18 | PC.NURSE ---
pt a&o x4, calm, and cooperative. pt sts he has lost about 100 lbs within the last year and a half. 20G IV placed to LAC, labs obtained, fluids hung, and pt medicated per mar for pain. awaiting lab results. mother in law at bedside. rr even/unlabored. call hebert within reach. plan of care ongoing.
[2023-07-12 11:38] LABS: Mean Corpuscular Volume 62.2 fL (80.0-98.0)
[2023-07-12 11:56] VITALS: BP 169/94; PULSE 80; RESP 16; TEMP 36.7; O2SAT 100
[2023-07-12 12:15] LABS: CT PCR NOT DETECTED (Not Detect.); NG PCR NOT DETECTED (Not Detect.)
[2023-07-12 12:46] VITALS: BP 141/94; PULSE 94; RESP 16; TEMP 37.1; O2SAT 100
== END 2023-07-12 12:49 | disposition home or self-care (01) ==
PROVIDERS: Emergency Provider Emergency Medicine; PCP Internal Medicine
DX: R30.0 Dysuria (principal); E11.9 Type 2 diabetes mellitus without complications; F41.1 Generalized anxiety disorder; F43.0 Acute stress reaction; Z79.4 Long term (current) use of insulin; Z79.899 Other long term (current) drug therapy
CPT/HCPCS: 0353U; 36415; 80048; 80076; 81003; 83690; 85025; 96360; 99284

== ENCOUNTER 2023-07-19 14:24 | Emergency (ER) | payer OTHER, SELFPAY ==
[2023-07-19 14:36] VITALS: BP 138/90; BP 152/95; PULSE 106; PULSE 120; RESP 18; TEMP 36.8; O2SAT 98; O2SAT 99; BMI 19.7
--- NOTE | 2023-07-19 14:40 | ED_ITS ---
HPI - Abdominal Pain General Chief Complaint: Abdominal Pain Stated Complaint: ABD PAIN SINCE THIS AM, VOMITING Time Seen by Provider: 07/19/23 20:19 History of Present Illness HPI narrative: The patient is a 38-year-old type 2 diabetic who is on Lantus insulin. He has a wearable glucose monitor. The patient has been having problems with upper abdominal pain and lower chest pain for several weeks. The patient was seen at [facility] 1 month ago on June 17 in the emergency room for abdominal pain. At that time he had a CT of his chest and also a CT of his abdomen and pelvis with IV contrast. These exams showed hepatic steatosis but no other acute problems. The patient reports that he has been having ongoing problems with this pain since then. The symptoms were worse today and he also had vomiting. No fevers. Since the visit to the [facility] Emergency room 1 month ago the patient has had other emergency room visits here. He was seen here on June 19 for a dental problem and was prescribed Bactrim and naproxen. He was seen again on July 08 when he presented to the emergency room for right-sided abdominal pain and diarrhea. There was a long wait and he left without evaluation. He returned on July 11 complaining of dysuria. He had a negative urinalysis, negative gonorrhea and chlamydia testing, an unremarkable labs and was discharged. Related Data Home Medications ?Medication ?Instructions ?Recorded ?Confirmed insulin glargine 100 unit/mL (3 60 unit subcut QAM 06/18/23 mL) subcutaneous pen (Lantus Solostar U-100 Insulin) Previous Rx's ?Medication ?Instructions ?Recorded gabapentin 100 mg capsule 100 mg PO TID #90 caps 05/26/23 naproxen 500 mg tablet (Naprosyn) 500 mg PO BID #20 tabs 06/20/23 sulfamethoxazole 800 1 tab PO BID #14 tabs 06/20/23 mg-trimethoprim 160 mg tablet (Bactrim DS) blood-glucose sensor (FreeStyle #2 ea 07/03/23 Rose 3 Sensor device) famotidine 40 mg tablet 40 mg PO DAILY #30 tabs 07/19/23 ondansetron 4 mg disintegrating 4 mg PO Q6H PRN nausea and 07/19/23 tablet vomiting #12 tabs Allergies Allergy/AdvReac Type Severity Reaction Status Date / Time amoxicillin [AMOXICILLIN] Allergy Intermediate Vomiting Verified 07/19/23 14:43 clindamycin [CLINDAMYCIN] Allergy Intermediate VOMITING Verified 07/19/23 14:43 Penicillins [PENICILLINS] Allergy Intermediate VOMITING Verified 07/19/23 14:43 prednisone [PREDNISONE] Allergy Intermediate RASH ITCHY Verified 07/19/23 14:43 Sulfa (Sulfonamide Allergy Intermediate Unknown Verified 07/19/23 14:43 Antibiotics) Review of Systems Review of Systems Yes all other systems are reviewed and are negative [facility] Past Medical History Medical History Diabetic neuropathy Type 2 diabetes mellitus Social History Social History Alcohol intake: never Smoked in Last 30 Days: Yes Use of substances other than those prescribed or required for medical reasons: No Advance Directives: No Advance Directives Information Provided: No Physical Exam ED Vital Signs: Vital Signs - 24 hr 07/19/23 14:36 07/19/23 22:39 Temperature 98.3 F 98.3 F Pulse Rate 106 H 106 H Respiratory Rate 18 18 Blood Pressure 152/95 H 152/95 H Pulse Oximetry 98 95 Oxygen Delivery Method Room Air Room Air BMI result Body Mass Index 19.7 Const Other: The patient is a 38-year-old male who was awake and alert. He seems to have an anxious affect. He says he is in significant discomfort. He does not appear obviously uncomfortable. HENMT Other: Face is symmetrical. Mucous membranes moist Eyes Other: Pupils are round equal, conjunctivae clear Neck Other: Neck is supple, no JVD Chest Other: The patient seemed to have a lot of rib tenderness at the right costal margin. Resp Effort & Inspection: normal respiratory effort Auscultation: clear to auscultation bilaterally Cardio Rate: regular rate Rhythm: regular rhythm Heart sounds: S1 normal heart sound present and S2 normal heart sound present GI Other: The abdomen is flat and nondistended. He had some generalized upper abdominal tenderness without clear focal tenderness, no rebound or guarding. The lower abdomen did not seem significantly tender. Skin Other: Skin is pale and dry. Neuro Other: The patient is awake, alert, grossly neurologically intact. Extrem Other: No peripheral edema Course Course Course Narrative: This is a rapid medical exam completed by [employer]: Additional HPI, ROS, PE not included below will be deferred to primary provider. Vomiting and generalized abdominal pain starting earlier today. Denies fevers, diarrhea. Took a zofran at home. States that he was evaluated several weeks ago by his PCP due to concern for a [address], US, and CXR completed. Colonoscopy scheduled Imaging reviewed showing hepatic steatosis and gallbladder polyp Medical Decision Making Medical Decision Making MDM Narrative: The patient is a type 2 diabetic on insulin who has had a lot of symptoms lately. He has had multiple ER visits. His complaint today is of abdominal pain. He was seen at [facility] about a month ago for similar abdominal pain and had an essentially negative CT of the abdomen and pelvis. He apparently currently is scheduled to have a colonoscopy because of these pains. On exam today I did not feel the patient had findings suggestive of an acute or surgical abdomen. Labs are unremarkable. His lipase is normal. The patient was treated with ketorolac, droperidol, and famotidine. He slept for awhile and seemed to feel better. He was given IV fluids. Ultimately he felt well enough for discharge. His labs are very reassuring. CRP is undetectable. White count and differential are normal. The patient was also given a dose of sucralfate in case his pain is related to gastritis. He did not feel the sucralfate was very helpful and he described it as tasting nasty. I think it would be reasonable to prescribe famotidine for this patient in case there is an element of gastritis. The patient also requested a prescription for ondansetron. I think he may be discharged. He seemed eager to be discharged. He said that he would take a Percocet when he got home. He has a pain management clinic appointment tomorrow. Lab Data 07/19/23 15:14 07/19/23 15:14 Labs: Lab Results 07/19/23 07/19/23 Range/Units 15:14 22:32 WBC 6.2 (4.8-10.8) X10*3/uL RBC 5.79 (4.60-5.80) X10*6/uL Hgb 12.0 L (14.0-18.0) g/dl Hct 36.0 L (42.0-52.0) % MCV 62.2 L (80.0-98.0) fL MCH 20.7 L (27.0-33.0) pg MCHC 33.3 (31.0-36.0) g/dl RDW 15.7 (11.0-16.0) % Plt Count 295 (160-400) X10*3/uL MPV 9.5 (9.4-12.4) fL Immature Gran % (Auto) 0.2 (0.0-0.4) % Neut % (Auto) 65.7 (45-73) % Lymph % (Auto) 28.9 (20-40) % [place] % (Auto) 4.5 (2-11) % Eos % (Auto) 0.2 (0-4) % Baso % (Auto) 0.5 (0-2) % Lymph # (Auto) 1.8 (1.2-4.9) X10*3/uL [place] # (Auto) 0.3 (0.1-1.2) X10*3/uL Eos # (Auto) 0.0 (0.0-0.4) X10*3/uL Baso # (Auto) 0.0 (0.0-0.2) X10*3/uL Abs Immat Gran (auto) 0.01 (0.00-0.03) X10*3/uL Absolute Neuts (auto) 4.1 (2.0-8.3) x10*3/uL Absolute Nucleated RBC 0.000 (0.0-0.012) X10*3/uL Nucleated RBC % (auto) 0.0 (0.0-0.2) /100WBC Sodium 138 (135-145) mmol/L Potassium 4.2 (3.3-5.1) mmol/L Chloride 102 (96-108) mmol/L Carbon Dioxide 24 (22-29) mmol/L Anion Gap 16 (12-20) BUN 18 H (9-16) mg/dL Creatinine 0.82 (0.5-1.4) mg/dL Estim Creat Clear Calc 99.4 Estimated GFR > 60 Random Glucose 151 H (60-115) mg/dL Calcium 10.3 H D (8.4-10.2) mg/dL Magnesium 2.2 (1.6-2.6) mg/dL Total Bilirubin 1.1 H (0.0-1.0) mg/dL AST 10 (5-37) U/L ALT 11 (0-40) U/L Alkaline Phosphatase 46 (39-117) U/L C-Reactive Protein < 0.04 (< or = 0.50) mg/dL Total Protein 7.7 (6.5-8.0) g/dL Albumin 5.1 H (3.5-5.0) g/dL Lipase 17 (8-78) U/L Urine Color Yellow Urine Appearance Clear Urine pH 6.0 (5.0-9.0) Ur Specific [place] 1.025 (1.005-1.025) Urine Protein Negative (Neg-Trace) mg/dL Urine Glucose (UA) Negative (Negative) mg/dL Urine Ketones 80 (Negative) mg/dL Urine Blood Negative (Negative) Urine Nitrite Negative (Negative) Ur Leukocyte Esterase Negative (Negative) Urine RBC 0-2 (0-2) /HPF Urine WBC 0-5 (0-5) /HPF Ur Squamous Epith Cells 0-2 (0-2) /HPF Urine Bacteria None Seen (None Seen) Hyaline Casts 0-2 (0-2) /LPF Influenza Type A (PCR) NEGATIVE (Negative) Influenza Type B (PCR) NEGATIVE (Negative) RSV RNA Qual (PCR) NEGATIVE (Negative) SARS-CoV-2 RNA (RT-PCR) NEGATIVE (Negative) Medications Administered Discontinued Medications Generic Name Dose Route Start Last Admin Trade Name Freq PRN Reason Stop Dose Admin Droperidol 1.25 mg 07/19/23 20:34 07/19/23 21:04 Droperidol 5 Mg/2 Ml Vial IVPUSH 07/19/23 20:35 1.25 mg ONCE ONE Administration Famotidine 20 mg 07/19/23 20:34 07/19/23 21:04 Famotidine/Pf 20 Mg/2 Ml Vial IVPUSH 07/19/23 20:35 20 mg ONCE ONE Administration Sodium Chloride 1,000 mls @ 999 mls/hr 07/19/23 20:45 07/19/23 22:40 Ns IV 07/19/23 21:45 Infused .Q1H1M EILEEN Infusion Sodium Chloride 1,000 mls @ 999 mls/hr 07/19/23 21:45 07/19/23 22:40 Ns IV 07/19/23 22:45 Infused .Q1H1M EILEEN Infusion Ketorolac Tromethamine 10 mg 07/19/23 20:34 07/19/23 21:04 Ketorolac Tromethamine 15 Mg/Ml Vial IVPUSH 07/19/23 20:35 10 mg ONCE ONE Administration Ondansetron HCl 4 mg 07/19/23 18:13 07/19/23 18:14 Ondansetron Odt 4 Mg Tab.Rapdis TRANSLINGU 07/19/23 18:14 4 mg ONCE ONE Administration Sucralfate 1 gm 07/19/23 21:00 07/19/23 21:41 Sucralfate Oral Suspension 1 Gm/10 Ml Oral.Susp PO 07/19/23 21:01 1 gm ONCE ONE Administration Discharge Plan Discharge Clinical Impression: Upper abdominal pain Patient Disposition: Home, Self-Care Additional Instructions: Your testing in the emergency room today has been very reassuring. It is possible your stomach pain may be related to a stomach acid problem. I have sent a prescription for a drug called famotidine to your pharmacy which I think would be reasonable for you to take daily. This medication helps reduce stomach acid production. Please keep your current appointment as scheduled and also make a follow up appointment with your regular doctor. Return to the emergency room if worse. Prescriptions: New famotidine 40 mg tablet 40 mg PO DAILY Qty: 30 0RF ondansetron 4 mg tablet,disintegrating 4 mg PO Q6H PRN (Reason: nausea and vomiting) Qty: 12 0RF No Action (DME) FreeStyle Rose 3 Sensor Device See Rx Instructions .Route Qty: 2 4RF Rx Instructions: As directed change every 14 days gabapentin 100 mg capsule 100 mg PO TID Qty: 90 0RF sulfamethoxazole-trimethoprim [Bactrim DS] 800-160 mg tablet 1 tab PO BID Qty: 14 0RF naproxen [Naprosyn] 500 mg tablet 500 mg PO BID Qty: 20 0RF insulin glargine [Lantus Solostar U-100 Insulin] 100 unit/mL (3 mL) insulin pen 60 unit subcut QAM Referrals: Gabriel Sun MD [Primary Care Provider] - (Abdominal pains) Interventions: ED Discharge Assessment Last Done: 07/19/23 22:39 Discharge Date/Time: 07/19/23 22:40 Print Language: Japanese
[2023-07-19 15:32] LABS: MANUAL DIFF FLAG NO
[2023-07-19 15:38] LABS: Basophils Percent Auto 0.5 % (0-2); Eosinophils Percent Auto 0.2 % (0-4); Imm Gran Abs Auto 0.01 X10*3/uL (0.00-0.03); Imm Gran Pct Auto 0.2 % (0.0-0.4); Lymphocytes Absolute Auto 1.8 X10*3/uL (1.2-4.9); Lymphocytes Percent Auto 28.9 % (20-40); Mean Corpuscular HGB Conc 33.3 g/dl (31.0-36.0); Mean Corpuscular Hemoglobin 20.7 pg (27.0-33.0); Mean Platelet Volume 9.5 fL (9.4-12.4); Monocytes Absolute Auto 0.3 X10*3/uL (0.1-1.2); Monocytes Percent Auto 4.5 % (2-11); Neutrophils Absolute Auto 4.1 x10*3/uL (2.0-8.3); Neutrophils Percent Auto 65.7 % (45-73); Platelet Count 295 X10*3/uL (160-400); Red Blood Count 5.79 X10*6/uL (4.60-5.80); Red Cell Distribution Width 15.7 % (11.0-16.0); White Blood Count 6.2 X10*3/uL (4.8-10.8)
[2023-07-19 15:43] LABS: Mean Corpuscular Volume 62.2 fL (80.0-98.0)
[2023-07-19 15:49] LABS: Alanine Aminotransferase 11 U/L (0-40); Albumin Level 5.1 g/dL (3.5-5.0); Alkaline Phosphatase 46 U/L (39-117); Anion Gap 16 (12-20); Aspartate Amino Transferase 10 U/L (5-37); Bilirubin Total 1.1 mg/dL (0.0-1.0); Blood Urea Nitrogen 18 mg/dL (9-16); Calcium 10.3 mg/dL (8.4-10.2); Carbon Dioxide 24 mmol/L (22-29); Chloride 102 mmol/L (96-108); Creatinine Clr Calc Pharmacy 99.4; Estimated Glomerular Filt Rate > 60; Glucose Random 151 mg/dL (60-115); Magnesium 2.2 mg/dL (1.6-2.6); Potassium 4.2 mmol/L (3.3-5.1); Sodium 138 mmol/L (135-145); Total Protein 7.7 g/dL (6.5-8.0)
[2023-07-19 16:23] LABS: Influenza A PCR NEGATIVE (Negative); Influenza B PCR NEGATIVE (Negative); Resp Syncy Virus RNA Qual PCR NEGATIVE (Negative); SARS COV2 PCR INHOUSE NEGATIVE (Negative)
[2023-07-19] MEDS: Ondansetron ODT 4 MG TAB.RAPDIS TRANSLINGU (18:14)
[2023-07-19 20:51] LABS: C Reactive Protein < 0.04 mg/dL (< or = 0.50); Lipase 17 U/L (8-78)
[2023-07-19] MEDS: droPERidol 5 MG/2 ML VIAL 1.25 MG IVPUSH (21:04)
[2023-07-19] MEDS: Famotidine/PF 20 MG/2 ML VIAL IVPUSH (21:04)
[2023-07-19] MEDS: Ketorolac Tromethamine 15 MG/ML VIAL 10 MG IVPUSH (21:04)
[2023-07-19] MEDS: 0.9 % Sodium Chloride 1,000 ML 999 ML IV ×2 (21:04→21:42)
--- NOTE | 2023-07-19 21:08 | PC.NURSE ---
20g IV placed in the left AC. Pt medicated per LONG.
[2023-07-19] MEDS: Sucralfate Oral Suspension 1 GM/10 ML ORAL.SUSP PO (21:41)
[2023-07-19 22:39] VITALS: BP 152/95; PULSE 106; RESP 18; TEMP 36.8; O2SAT 95
[2023-07-19 22:41] LABS: Appearance Urine Clear; Color Urine Yellow; Glucose Urine UA Negative (Negative); Leukocyte Esterase Urine Negative (Negative); Nitrite Urine Negative (Negative); Specific Gravity - Urine 1.025 (1.005-1.025); Urine Blood Negative (Negative); Urine Ketones 80 mg/dL (Negative); Urine Protein Negative (Neg-Trace)
[2023-07-19 22:46] LABS: Bacteria Urine None Seen (None Seen); Hyaline Casts Urine 0-2 /LPF (0-2); RBC Urine 0-2 /HPF (0-2); Squamous Epithelial Cell Urine 0-2 /HPF (0-2); WBC Urine 0-5 /HPF (0-5)
== END 2023-07-19 22:40 | disposition home or self-care (01) ==
PROVIDERS: Nurse Practitioner Family; Emergency Provider Emergency Medicine; PCP Internal Medicine
DX: R10.30 Lower abdominal pain, unspecified (principal); R11.2 Nausea with vomiting, unspecified; E11.9 Type 2 diabetes mellitus without complications; Z79.4 Long term (current) use of insulin; Z11.52 Encounter for screening for COVID-19; Z20.822 Contact with and (suspected) exposure to COVID-19; Z79.899 Other long term (current) drug therapy
CPT/HCPCS: 0241U; 36415; 80053; 81001; 83690; 83735; 85025; 86140; 96361; 96374; 96375; 99284; 99285; J1790; J1885

== ENCOUNTER 2023-08-09 12:10 | Outpatient (AMB) | payer OTHER, SELFPAY ==
[2023-08-09 12:46] VITALS: BMI 18.8
--- NOTE | 2023-08-09 12:46 | MHC.AMNUTRGE ---
VS Expanded 08/09/23 12:46 Height 5 ft 8 in Weight 123 lb 14.397 oz BMI 18.8 Intake Visit Reasons: DM Allergies amoxicillin [AMOXICILLIN] Allergy (Intermediate, Verified 07/19/23 14:43) Vomiting clindamycin [CLINDAMYCIN] Allergy (Intermediate, Verified 07/19/23 14:43) VOMITING Penicillins [PENICILLINS] Allergy (Intermediate, Verified 07/19/23 14:43) VOMITING prednisone [PREDNISONE] Allergy (Intermediate, Verified 07/19/23 14:43) RASH ITCHY Sulfa (Sulfonamide Antibiotics) Allergy (Intermediate, Verified 07/19/23 14:43) Unknown Nutrition Presentation Details: Pt presents for MNT f/u for T2DM Pt was at ER on 07/18/22 due to abdominal pain. Pt reports his appetite has reduced due to constipation but states he is feeling better. NOTED additional weight loss, 22 lbs since last nutrition visit. Noted Pt has labs pending,including glutamic acid decarboxylase and cortisol, the Pt was advised to have these done fasting tomorrow. BS Monitoring Most Recent Diabetes Results: Creatinine 0.82 mg/dL (0.5-1.4) 07/19/23 Blood Urea Nitrogen 18 mg/dL (9-16) H 07/19/23 Sodium 138 mmol/L (135-145) 07/19/23 Potassium 4.2 mmol/L (3.3-5.1) 07/19/23 Chloride 102 mmol/L (96-108) 07/19/23 Carbon Dioxide 24 mmol/L (22-29) 07/19/23 Calcium 10.3 mg/dL (8.4-10.2) H 07/19/23 AST 10 U/L (5-37) 07/19/23 ALT 11 U/L (0-40) 07/19/23 Total Protein 7.7 g/dL (6.5-8.0) 07/19/23 Albumin 5.1 g/dL (3.5-5.0) H 07/19/23 [facility] Medical History Diabetic neuropathy Type 2 diabetes mellitus Social History Alcohol intake: never Assessment & Plan Assessment & Plan (1) Type 2 diabetes mellitus: Comment: PCP: RECOMMEND prescribing high protein ensure to have 3 a day Code(s): E11.9 - Type 2 diabetes mellitus without complications Category: Medical Plan: Wt: 65.4 Kg (06/2023 ) Est kcal needs as per MSJ: 2400 (40% carb, 30% protein/fat) Est fluid needs as per 25-30 ml/d: 2000 Est prot per day as per 1 g/kg bw: 65 Recommend fiber intake : 8-10 g per day and gradually increase to 25-28 g per day for women and 35-38 g for men or as tolerated Recommend sodium intake per day: less than 2000 mg Educated patient on: ( R = reviewed V = verbalizes understanding N/R = needs review N/A = not applicable Food sources of carbohydrate, adequate serving sizes and its role in various health conditions: R Differences between complex carbohydrates a simple carbohydrates, role of fiber in diet: N/R Lean protein sources of foods: R Differences between types of fats and role in diet (mono on saturated fat fatty acids, saturated fatty acids, trans fats): N/R Food sources of sodium in salt and healthy modifications for heart health in kidney health: NR Vitamins and minerals: R V N/R Healthy plate method concept: R Physical activity: Benefits a precaution: N/R Hypoglycemia protocol (rule of 15): R Dietary prevention of Hyperglycemia: R Patient Instructions: have 3 meals a day do not skip meals and do liberalize the diet (sandwich with egg/ham/cheese/spinach and glass of milk or cereal with milk lunch: burger/fries/smoothie dinner: pasta/ chicken or beef , broccoli , glass of milk , do not skip your diabetes medications and include meal supplements in between meals Drink milk or juice (beverages with nutrition in place of water) Have laboratory done tomorrow in the fasting state Coding Level of Care Code Nutr Indiv Subseq ([id number]) Diagnoses Type 2 diabetes mellitus E11.9 Time Spent (min) 30
== END 2023-08-09 13:04 | disposition home or self-care (01) ==
PROVIDERS: PCP Internal Medicine; Visit Provider Dietitian, Registered
DX: E11.9 Type 2 diabetes mellitus without complications (principal)

== ENCOUNTER → 2023-08-09 12:10 | Outpatient (BNVA) | payer OTHER, SELFPAY | PROVIDERS: PCP Internal Medicine; Visit Provider Dietitian, Registered | DX: E11.9 Type 2 diabetes mellitus without complications (principal) | CPT/HCPCS: 97803 ==

== ENCOUNTER 2023-09-03 09:34 | Outpatient (REF) | payer OTHER, SELFPAY ==
[2023-09-03 11:11] LABS: Cholesterol 126 mg/dL (<200); HDL Cholesterol 31 mg/dL (>40); LDL Cholesterol Calculated 76 mg/dL (<100); Triglycerides 96 mg/dL (<150)
[2023-09-03 11:24] LABS: Cortisol Random 13.8 ug/dL
[2023-09-03 11:28] LABS: Free T4 (Free Thyroxine) 1.25 ng/dL (0.71-1.85); Thyroid Stimulating Hormone 1.46 uIU/mL (0.32-4.0)
[2023-09-08 20:27] LABS: Glutamic acid decarboxylase Ab <5 IU/mL (<5)
== END 2023-09-03 09:35 | disposition home or self-care (01) ==
LOC: HO.LAB 09:34
PROVIDERS: Visit Provider Internal Medicine Endocrinology, Diabetes & Metabolism
DX: E11.9 Type 2 diabetes mellitus without complications (principal)
CPT/HCPCS: 36415; 80061; 82533; 84439; 84443; 86341

== ENCOUNTER 2023-09-04 12:26 | Outpatient (AMB) | payer OTHER, SELFPAY ==
--- NOTE | 2023-09-04 12:34 | A.OFFVIS_ITS ---
VS Expanded 09/04/23 12:35 Height 5 ft 8 in Weight 119 lb 7.849 oz BMI 18.2 Intake Visit Reasons: Monitor Weight/CONFIRMED Allergies amoxicillin [AMOXICILLIN] Allergy (Intermediate, Verified 07/19/23 14:43) Vomiting clindamycin [CLINDAMYCIN] Allergy (Intermediate, Verified 07/19/23 14:43) VOMITING Penicillins [PENICILLINS] Allergy (Intermediate, Verified 07/19/23 14:43) VOMITING prednisone [PREDNISONE] Allergy (Intermediate, Verified 07/19/23 14:43) RASH ITCHY Sulfa (Sulfonamide Antibiotics) Allergy (Intermediate, Verified 07/19/23 14:43) Unknown Nutrition Presentation Details: Pt presents for MNT f/u for DM. Pt presents with sister in law during this appt. Pt reports he is taking Lantus 15 units/day and Humalog 5-8 units prior to meals Admits to omitting Lantus d/t forgetting some days per weeks Pt reports he is working on increasing his food portions , he reports having good bowel movements and working on increasing fiber in his diet rains bran cereal , whole milk (8 oz ) vanilla gogurt L: 1c macaroni salad/ 1/2 grilled cheese sand, 1 1/2 c milk D: 3-4 buffalo chicken, 1 bag pickled chips, 1-2 c milk whole late dinner hamburg with pasta salad, pickled chips, milk Pt reports taking 15 units of Lantus and 5-8 units Humalog before meals, pt reports getting ensure high protein 3 a day, having these in between meals BS Monitoring Most Recent Diabetes Results: Cholesterol 126 mg/dL (<200) 09/03/23 HDL Cholesterol 31 mg/dL (>40) L 09/03/23 Triglycerides 96 mg/dL (<150) 09/03/23 Creatinine 0.82 mg/dL (0.5-1.4) 07/19/23 Blood Urea Nitrogen 18 mg/dL (9-16) H 07/19/23 Sodium 138 mmol/L (135-145) 07/19/23 Potassium 4.2 mmol/L (3.3-5.1) 07/19/23 Chloride 102 mmol/L (96-108) 07/19/23 Carbon Dioxide 24 mmol/L (22-29) 07/19/23 Calcium 10.3 mg/dL (8.4-10.2) H 07/19/23 AST 10 U/L (5-37) 07/19/23 ALT 11 U/L (0-40) 07/19/23 Total Protein 7.7 g/dL (6.5-8.0) 07/19/23 Albumin 5.1 g/dL (3.5-5.0) H 07/19/23 PFSH Medical History Diabetic neuropathy Type 2 diabetes mellitus Social History Alcohol intake: never Assessment & Plan Assessment & Plan (1) Type 2 diabetes mellitus: Code(s): E11.9 - Type 2 diabetes mellitus without complications Category: Medical Plan: Wt: 65.4 Kg (06/2023 ), 54 kg (08/2023) Est kcal needs as per MSJ: 2400 +1000 /2000 to promote weight gain (40% carb, 30% protein/fat) Est fluid needs as per 25-30 ml/d: 2000 Est prot per day as per 1 g/kg bw: 65 Recommend fiber intake : 8-10 g per day and gradually increase to 25-28 g per day for women and 35-38 g for men or as tolerated Recommend sodium intake per day: less than 2000 mg Educated patient on: ( R = reviewed V = verbalizes understanding N/R = needs review N/A = not applicable * Food sources of carbohydrate, adequate serving sizes and its role in various health conditions: R * Differences between complex carbohydrates a simple carbohydrates, role of fib er in diet: N/R * Lean protein sources of foods: R * Differences between types of fats and role in diet (mono on saturated fat fatty acids, saturated fatty acids, trans fats): N/R * Food sources of sodium in salt and healthy modifications for heart health in kidney health: NR * Vitamins and minerals: R V N/R * Healthy plate method concept: R * Physical activity: Benefits a precaution: N/R * Hypoglycemia protocol (rule of 15): R * Dietary prevention of Hyperglycemia: R Patient Instructions: Liberalize your diet by increasing portions of a combination of foods (starches/protein/fats) to each of your meals example add 2 starches and 1 med fat protein to each meal, continue to have milk with each meal (add flavors of choice: peanut butter, marlee , strawberry) Continue to have the nutritional supplements in between meals and have: example crackers with peanut butter or 1/2 sand or chips along with the supplement bring a family member with you to the appointments Call [facility] [place] for assistance with transportation to the ap pointments tel #[phone]/ see website for transportation services and schedule Coding Level of Care Code Nutr Indiv Subseq (47742) Diagnoses Type 2 diabetes mellitus E11.9 Time Spent (min) 30
[2023-09-04 12:35] VITALS: BMI 18.2
== END 2023-09-04 13:06 | disposition home or self-care (01) ==
PROVIDERS: PCP Internal Medicine; Visit Provider Dietitian, Registered
DX: E11.9 Type 2 diabetes mellitus without complications (principal)

== ENCOUNTER → 2023-09-04 12:26 | Outpatient (BNVA) | payer OTHER, SELFPAY | PROVIDERS: PCP Internal Medicine; Visit Provider Dietitian, Registered | DX: E11.9 Type 2 diabetes mellitus without complications (principal); Z79.4 Long term (current) use of insulin; Z71.3 Dietary counseling and surveillance | CPT/HCPCS: 97803 ==

== ENCOUNTER 2023-09-26 16:13 | Outpatient (AMB) | payer OTHER, SELFPAY ==
--- NOTE | 2023-09-26 16:27 | MHC.AMDMED ---
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 Accompanied by: Self / Same As Patient Allergies amoxicillin [AMOXICILLIN] Allergy (Intermediate, Verified 07/19/23 14:43) Vomiting clindamycin [CLINDAMYCIN] Allergy (Intermediate, Verified 07/19/23 14:43) VOMITING Penicillins [PENICILLINS] Allergy (Intermediate, Verified 07/19/23 14:43) VOMITING prednisone [PREDNISONE] Allergy (Intermediate, Verified 07/19/23 14:43) RASH ITCHY Sulfa (Sulfonamide Antibiotics) Allergy (Intermediate, Verified 07/19/23 14:43) Unknown HPI Comprehensive Diabetes Asmnt Most Recent Diabetes Results: Cholesterol 126 mg/dL (<200) 09/03/23 HDL Cholesterol 31 mg/dL (>40) L 09/03/23 Triglycerides 96 mg/dL (<150) 09/03/23 Creatinine 0.82 mg/dL (0.5-1.4) 07/19/23 Blood Urea Nitrogen 18 mg/dL (9-16) H 07/19/23 Sodium 138 mmol/L (135-145) 07/19/23 Potassium 4.2 mmol/L (3.3-5.1) 07/19/23 Chloride 102 mmol/L (96-108) 07/19/23 Carbon Dioxide 24 mmol/L (22-29) 07/19/23 Calcium 10.3 mg/dL (8.4-10.2) H 07/19/23 AST 10 U/L (5-37) 07/19/23 ALT 11 U/L (0-40) 07/19/23 Total Protein 7.7 g/dL (6.5-8.0) 07/19/23 Albumin 5.1 g/dL (3.5-5.0) H 07/19/23 [facility] Medical History Diabetic neuropathy Type 2 diabetes mellitus Social History Alcohol intake: never Assessment & Plan Assessment & Plan (1) Type 2 diabetes mellitus: Code(s): E11.9 - Type 2 diabetes mellitus without complications Plan: Personal Continuous Glucose Monitor: Patients CGM information reviewed Reviewed patient's sensor data: Hypoglycemia: ? 0% Hyperglycemia:?13% Time in Range:? 87% Average glucose for the last 2 weeks? 155 mg/dL Patient reports he is not taking Lantus 5 units in the past 2 weeks, glucose has remained relatively well controlled with some postprandial hyperglycemia Patient's C-peptide confirm the patient has type 2 diabetes Message was sent to Dr. Figueroa to see if patient could be prescribed an oral diabetes medication instead of insulin Patient also reports that he has been on metformin in the past and it is caused diarrhea Reviewed how to interpret trend arrows Reminded patient that to check finger sticks if symptoms do not match sensor reading. Discussed lag time between finger stick and sensor data.? Patient able to insert sensor independently at home without issue.? Portions of this note were created using voice recognition software, please excuse any words or phrases that may have been misinterpreted. Patient Instructions: Patient will follow-up with Diabetes Education nurse as needed Coding Level of Care Code Est Pt Level 1 (08996) Diagnoses Type 2 diabetes mellitus E11.9
== END 2023-09-26 16:51 | disposition home or self-care (01) ==
PROVIDERS: PCP Internal Medicine; Visit Provider Registered Nurse Diabetes Educator
DX: E11.9 Type 2 diabetes mellitus without complications (principal)

== ENCOUNTER → 2023-09-26 16:13 | Outpatient (BNVA) | payer OTHER, SELFPAY | PROVIDERS: PCP Internal Medicine; Visit Provider Registered Nurse Diabetes Educator | DX: E11.9 Type 2 diabetes mellitus without complications (principal) | CPT/HCPCS: 99211 ==

== ENCOUNTER 2023-10-17 12:52 | Outpatient (AMB) | payer OTHER, SELFPAY ==
--- NOTE | 2023-10-17 12:59 | A.OFFVIS_ITS ---
VS Expanded 10/17/23 13:00 Height 5 ft 8 in Weight 119 lb 0.794 oz BMI 18.1 Intake Visit Reasons: DM, monitor weight/CONFIRMED Allergies amoxicillin [AMOXICILLIN] Allergy (Intermediate, Verified 10/17/23 12:56) Vomiting clindamycin [CLINDAMYCIN] Allergy (Intermediate, Verified 10/17/23 12:56) VOMITING Penicillins [PENICILLINS] Allergy (Intermediate, Verified 10/17/23 12:56) VOMITING prednisone [PREDNISONE] Allergy (Intermediate, Verified 10/17/23 12:56) RASH ITCHY Sulfa (Sulfonamide Antibiotics) Allergy (Intermediate, Verified 10/17/23 12:56) Unknown Nutrition Presentation Details: Pt presents for MNT f/u to monitor on weight Pt presents wtih sister in law during this appt Pt reports starting to increase food little by little, reports feeling more comfortable having rice, pastas, starches and including protein (eggs, steak, chicken, fish) soemtiems has ramen noodles or pasta in soup- no protein added no vegetables- typically not made in the household Reports having bowel movements and no longer having stomach pain BS Monitoring Most Recent Diabetes Results: Cholesterol 126 mg/dL (<200) 09/03/23 HDL Cholesterol 31 mg/dL (>40) L 09/03/23 Triglycerides 96 mg/dL (<150) 09/03/23 [facility] Medical History Diabetic neuropathy Type 2 diabetes mellitus Surgical History (Updated 10/17/23 @ 13:23 by SANDOR Mcnally) No pertinent past surgical history Social History (Updated 10/17/23 @ 13:23 by SANDOR Mcnally) Alcohol intake: never Patient Tobacco Use Status: Current everyday Tobacco user Assessment & Plan Assessment & Plan (1) Type 2 diabetes mellitus: Code(s): E11.9 - Type 2 diabetes mellitus without complications Category: Medical Plan: Wt: 65.4 Kg (06/2023 ), 54 kg (08/2023), (09/2023) Est kcal needs as per MSJ: 2400 +1000 /2000 to promote weight gain (40% carb, 30% protein/fat) Est fluid needs as per 25-30 ml/d: 2000 Est prot per day as per 1 g/kg bw: 65 Recommend fiber intake : 8-10 g per day and gradually increase to 25-28 g per day for women and 35-38 g for men or as tolerated Recommend sodium intake per day: less than 2000 mg Educated patient on: ( R = reviewed V = verbalizes understanding N/R = needs review N/A = not applicable * Food sources of carbohydrate, adequate serving sizes and its role in various health conditions: R * Differences between complex carbohydrates a simple carbohydrates, role of fiber in diet: R * Lean protein sources of foods: R * including fats/fiber rich foods in diet : R * Differences between types of fats and role in diet (mono on saturated fat fatty acids, saturated fatty acids, trans fats): N/R * Food sources of sodium in salt and healthy modifications for heart health in kidney health: NR * Vitamins and minerals: R V N/R * Healthy plate method concept: R * Physical activity: Benefits a precaution: N/R * Hypoglycemia protocol (rule of 15): R * Dietary prevention of Hyperglycemia: R Patient Instructions: Continue to work on increasing food portions Choose cereals with fiber (raisin bran cereal, oatmeal with whole milk, add nuts of choice Add eggs/ham/sausage/carrots to the soups/pasta- (work on adding protein to the starch instead of by itself) see list of protein sources of foods Add fatty protein foods (chicken with skin, tuna in oil instead of water whole eggs, sausages , meats) Coding Level of Care Code Nutr Indiv Subseq (04951) Diagnoses Type 2 diabetes mellitus E11.9 Time Spent (min) 20
[2023-10-17 13:00] VITALS: BMI 18.1
== END 2023-10-17 13:17 | disposition home or self-care (01) ==
PROVIDERS: PCP Internal Medicine; Visit Provider Dietitian, Registered
DX: E11.9 Type 2 diabetes mellitus without complications (principal)

== ENCOUNTER 2023-10-17 12:52 | Outpatient (AMB) | payer OTHER, SELFPAY ==
--- NOTE | 2023-10-17 12:55 | A.OFFVIS_ITS ---
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 He was seen initially by Dr. Figueroa in June 2023 and more recently by Jenna WILHELM early September. I had spoken with his PCP after his last visit to report additional weight loss. Dr. Figueroa had ordered a CT of the abdomen in June and this was sent to us and pancreas was visualized with no mass. He is working closely with his PCP who believes his weight loss is related to maladaptive eating patterns secondary to anxiety, pain and desired to control sugars. He has met with the director of clinical education in our office several times. His weight is up 5 lb since his last visit. He has seen a neurologist for the neuropathy he has an EMG scheduled with neurology follow-up. Initially diagnosed with T2DM in age 36 . Developed polyuria and polydypsia. He has not been seen by an counter cutter in the past. He was taking Lantus 60 units Humalog 15-30 units before meals. Which he has completely weaned himself off. At his last office visit Jenna WILHELM felt like he was self restricting his intake which he reports he is no longer doing although continues to have somewhat appetite secondary to pain Freestyle 3 average glucose: [ 150] Glucose Managment indicator [ 6.9] % TIme in range: 0 % very high (above 250) 12 % high ?(181-250) 88 % in range ?(70-180] 0 % low (69-55) 0 % ?very low (below 54) Reports low sugars No Family history of T2DM unknown-adopted . denies retinopathy. Has neuropathy, not seen by podiatry. Has EMG in follow-up neurology appointment Denies nephropathy,Not on UCHE/ARB.. Has HLD,Was on statin in the past Denies CAD. [facility] Medical History Diabetic neuropathy Type 2 diabetes mellitus Surgical History (Updated 10/17/23 @ 13:23 by SANDOR Mcnally) No pertinent past surgical history Social History (Updated 10/17/23 @ 13:23 by SANDOR Mcnally) Alcohol intake: never Patient Tobacco Use Status: Current everyday Tobacco user Physical Exam Vital Signs: Last Vital Signs Pulse 104 H 10/17/23 13:18 BP 140/96 H 10/17/23 13:18 BMI result Body Mass Index 18.1 Const General: cooperative and healthy appearing Nutritional Appearance: thin Orientation/consciousness: patient oriented x3 Limitations: no limitations Neck Neck: Yes normal visual inspection, Yes trachea midline and Yes supple Thyroid: Thyroid normal Resp Effort & Inspection: normal respiratory effort Auscultation: clear to auscultation bilaterally Cardio Jugular venous distension: no JVD Rate: regular rate Rhythm: regular rhythm Heart sounds: S1 normal heart sound present and S2 normal heart sound present Neuro General: patient oriented x3 Extrem Other: foot exam deferred Results Reviewed Results Reviewed: Laboratory Tests 07/19/23 09/03/23 15:14 09:51 Potassium 4.2 Creatinine 0.82 Estim Creat Clear Calc 99.4 Estimated GFR > 60 Calcium 10.3 H D Magnesium 2.2 AST 10 ALT 11 Alkaline Phosphatase 46 Albumin 5.1 H Triglycerides 96 Cholesterol 126 LDL Cholesterol, Calc 76 HDL Cholesterol 31 L TSH 1.46 Free T4 1.25 Random Cortisol 13.8 Assessment & Plan Assessment & Plan (1) Type 2 diabetes mellitus: Code(s): E11.9 - Type 2 diabetes mellitus without complications Category: Medical Plan: Type 2 diabetic confirmed by negative jean pierre antibodies previously on basal bolus insulin. He is no longer on insulin and his blood sugars by freestyle Rose 3 are in excellent control. He has gained 5 lb since his last office visit and he has worked with our director of clinical education and has additional follow up per patient. He has a follow up appointment for an EMG and Neurology follow-up regarding his peripheral neuropathy. Patient will continue a balanced meal plan without strict restricting calories. If his blood sugars start to rise above an average 170 he can inform our office. Otherwise we will see him back 1 more time in 4 months and discharge him back to primary care at that point. He follows closely with his primary care doctor. He will contact our office to schedule an appointment with Dr. Figueroa and follow-up with Marzena Gtz RD as he was unable to scheduled today. Coding Level of Care Code Est Pt Level 4 (02564) Complex EM visit Add On G2211 Diagnoses Type 2 diabetes mellitus E11.9 Time Spent (min) 30 Comment Time spent reviewing labs/previous provider notes, face to face, chart documentation
[2023-10-17 13:18] VITALS: BP 140/96; PULSE 104; BMI 18.1
== END 2023-10-17 13:47 | disposition home or self-care (01) ==
PROVIDERS: PCP Internal Medicine; Visit Provider Nurse Practitioner Adult Health
DX: E11.9 Type 2 diabetes mellitus without complications (principal)
CPT/HCPCS: 99214; G2211

== ENCOUNTER → 2023-10-17 12:52 | Outpatient (BNVA) | payer OTHER, SELFPAY | PROVIDERS: PCP Internal Medicine; Visit Provider Nurse Practitioner Adult Health | DX: E11.9 Type 2 diabetes mellitus without complications (principal) | CPT/HCPCS: 97803; 99212 ==

== ENCOUNTER 2024-03-12 09:24 | Emergency (ER) | payer OTHER, SELFPAY ==
[2024-03-12 09:35] VITALS: BP 143/87; PULSE 111; RESP 16; TEMP 37.1; O2SAT 97; BMI 19.0
--- NOTE | 2024-03-12 09:44 | ED_ITS ---
HPI - General Adult General Chief complaint: Nausea/Vomiting/Diarrhea Stated complaint: vomiting Time Seen by Provider: 03/12/24 09:43 History of Present Illness ED Provider: Yakelin HPI narrative: The patient is a 38-year-old male with a history of type 2 diabetes. He comes to the emergency room because he has had a lot of nausea and vomiting since last night. He has had no diarrhea. No definite fever. He says he has not experienced an episode like this before but he felt worn out and was unable to tolerate oral intake and so he had a friend drive him to the emergency room. He said specifically that it was unable to tolerate his regular oral medications. The patient denies marijuana use. Related Data Previous Rx's ?Medication ?Instructions ?Recorded gabapentin 100 mg capsule 100 mg PO TID #90 caps 05/26/23 naproxen 500 mg tablet (Naprosyn) 500 mg PO BID #20 tabs 06/20/23 sulfamethoxazole 800 1 tab PO BID #14 tabs 06/20/23 mg-trimethoprim 160 mg tablet (Bactrim DS) blood-glucose sensor (FreeStyle #2 ea 07/03/23 Rose 3 Sensor device) famotidine 40 mg tablet 40 mg PO DAILY #30 tabs 07/19/23 ondansetron 4 mg disintegrating 4 mg PO Q6H PRN nausea and 07/19/23 tablet vomiting #12 tabs blood-glucose sensor (FreeStyle #2 ea 11/27/23 Rose 3 Plus Sensor device) metoclopramide HCl 10 mg tablet 10 mg PO Q6H PRN nausea and 03/12/24 vomiting #12 tabs Allergies Allergy/AdvReac Type Severity Reaction Status Date / Time amoxicillin [AMOXICILLIN] Allergy Intermediate Vomiting Verified 03/12/24 09:36 clindamycin [CLINDAMYCIN] Allergy Intermediate VOMITING Verified 03/12/24 09:36 Penicillins [PENICILLINS] Allergy Intermediate VOMITING Verified 03/12/24 09:36 prednisone [PREDNISONE] Allergy Intermediate RASH ITCHY Verified 03/12/24 09:36 Sulfa (Sulfonamide Allergy Intermediate Unknown Verified 03/12/24 09:36 Antibiotics) Review of Systems 2 Review of Systems: Yes all other systems are reviewed and are negative PMFSH Past Medical History Medical History (Updated 03/12/24 @ 13:35 by Cal Hamlin MD) Diabetic neuropathy Type 2 diabetes mellitus Surgical History (Updated 10/17/23 @ 13:23 by SANDOR Mcnally) No pertinent past surgical history Social History Social History (Updated 10/17/23 @ 13:23 by SANDOR Mcnally) Alcohol intake: never Patient Tobacco Use Status: Current everyday Tobacco user Smoked in Last 30 Days: Yes Use of substances other than those prescribed or required for medical reasons: No Advance Directives: No Physical Exam ED Vital Signs: Vital Signs - 24 hr 03/12/24 09:35 03/12/24 13:27 03/12/24 13:46 Temperature 98.7 F 98.9 F 98.9 F Pulse Rate 111 H 105 H 105 H Respiratory Rate 16 16 16 Blood Pressure 143/87 H 149/86 H 149/86 H Pulse Oximetry 97 99 99 Oxygen Delivery Method Room Air Room Air Room Air BMI result Body Mass Index 19.0 Const Other: The patient is a cachectic 38-year-old who looks as if he is chronically and healthy. He does not look obviously acutely ill. HENMT Other: Face is symmetrical. Mucous membranes moist. Posterior pharynx unremarkable. Eyes General: appearance normal, both eyes and all related structures Conjunctivae: conjunctivae normal Sclerae: sclerae normal Pupils: Equal, round and reactive pupils present EOM: EOMs intact bilaterally Neck Neck: Yes full ROM Resp Effort & Inspection: normal respiratory effort Auscultation: clear to auscultation bilaterally Cardio Rate: regular rate Rhythm: regular rhythm Heart sounds: S1 normal heart sound present and S2 normal heart sound present GI Other: Abdomen was flat and soft and did not seem significantly tender. Skin Other: Skin was pale and dry Neuro Other: The patient was awake and alert with a normal mental status. Mucous face symmetrical. Speech clear. Cranial nerves grossly intact. Moving extremities normally. Gait steady. Cranial nerves: Yes Equal, round and reactive pupils present Extrem Other: No peripheral edema Medications Administered Discontinued Medications Generic Name Dose Route Start Last Admin Trade Name Freq PRN Reason Stop Dose Admin Diphenhydramine HCl 50 mg 03/12/24 09:53 03/12/24 11:07 Diphenhydramine Hcl 50 Mg/Ml Vial IVPUSH 03/12/24 09:54 50 mg ONCE ONE Administration Sodium Chloride 1,000 mls @ 999 mls/hr 03/12/24 10:00 03/12/24 12:28 Ns IV 03/12/24 11:00 Infused .Q1H1M EILEEN Infusion Sodium Chloride 1,000 mls @ 999 mls/hr 03/12/24 11:15 03/12/24 12:28 Ns IV 03/12/24 12:15 Infused .Q1H1M EILEEN Infusion Prochlorperazine Edisylate 10 mg 03/12/24 09:53 03/12/24 11:07 Prochlorperazine Edisylate 10 Mg/2 Ml Vial IVPUSH 03/12/24 09:54 10 mg ONCE ONE Administration Medical Decision Making Medical Decision Making [facility] Narrative: The patient presents with a complaint of acute nausea and vomiting and inability to tolerate oral intake. He is afebrile. He has a benign abdomen. He denies marijuana use. The patient was treated symptomatically with IV fluids, prochlorperazine, and diphenhydramine. He received a total of 2 L of saline. He felt remarkably better and was able to tolerate oral intake and was eager for discharge. Lab Data 03/12/24 09:51 03/12/24 09:51 Labs: Lab Results 03/12/24 03/12/24 Range/Units 09:51 13:46 WBC 7.2 (4.8-10.8) X10*3/uL RBC 5.38 (4.60-5.80) X10*6/uL Hgb 11.1 L (14.0-18.0) g/dl Hct 33.7 L (42.0-52.0) % MCV 62.6 L (80.0-98.0) fL MCH 20.6 L (27.0-33.0) pg MCHC 32.9 (31.0-36.0) g/dl RDW 15.1 (11.0-16.0) % Plt Count 228 (160-400) X10*3/uL MPV 9.5 (9.4-12.4) fL Immature Gran % (Auto) 0.3 (0.0-0.4) % Neut % (Auto) 80.7 H (45-73) % Lymph % (Auto) 14.8 L (20-40) % [place] % (Auto) 3.9 (2-11) % Eos % (Auto) 0.0 (0-4) % Baso % (Auto) 0.3 (0-2) % Lymph # (Auto) 1.1 L (1.2-4.9) X10*3/uL [place] # (Auto) 0.3 (0.1-1.2) X10*3/uL Eos # (Auto) 0.0 (0.0-0.4) X10*3/uL Baso # (Auto) 0.0 (0.0-0.2) X10*3/uL Abs Immat Gran (auto) 0.02 (0.00-0.03) X10*3/uL Absolute Neuts (auto) 5.8 (2.0-8.3) x10*3/uL Absolute Nucleated RBC 0.000 (0.0-0.012) X10*3/uL Nucleated RBC % (auto) 0.0 (0.0-0.2) /100WBC Sodium 137 (135-145) mmol/L Potassium 4.0 (3.3-5.1) mmol/L Chloride 102 (96-108) mmol/L Carbon Dioxide 25 (22-29) mmol/L Anion Gap 14 (12-20) BUN 14 (9-16) mg/dL Creatinine 0.79 (0.5-1.4) mg/dL Estim Creat Clear Calc 99.6 Estimated GFR > 60 Random Glucose 161 H (60-115) mg/dL Calcium 9.7 (8.4-10.2) mg/dL Magnesium 2.0 (1.6-2.6) mg/dL Total Bilirubin 0.8 (0.0-1.0) mg/dL AST 16 (5-37) U/L ALT 18 (0-40) U/L Alkaline Phosphatase 62 (39-117) U/L C-Reactive Protein < 0.10 (< or = 0.50) mg/dL Total Protein 7.5 (6.5-8.0) g/dL Albumin 4.8 (3.5-5.0) g/dL Lipase 13 (8-78) U/L Urine Color Yellow Urine Appearance Clear Urine pH 6.5 (5.0-9.0) Ur Specific [place] <= 1.005 (1.005-1.025) Urine Protein Negative (Neg-Trace) mg/dL Urine Glucose (UA) Negative (Negative) mg/dL Urine Ketones Trace (Negative) mg/dL Urine Blood Negative (Negative) Urine Nitrite Negative (Negative) Ur Leukocyte Esterase Negative (Negative) Urine Opiates Screen Not Detected (Not Detect) Ur Buprenorphine Scrn Not Detected (Not Detect) ng/mL Ur Oxycodone Screen Positive H (Not Detect) ng/mL Urine Methadone Screen Not Detected (Not Detect) ng/mL Urine Fentanyl Screen POSITIVE H (Not Detect) Ur Barbiturates Screen Not Detected (Not Detect) Ur Phencyclidine Scrn Not Detected (Not Detect) Ur Amphetamines Screen Not Detected (Not Detect) U Benzodiazepines Scrn Not Detected (Not Detect) Urine Cocaine Screen Not Detected (Not Detect) U Marijuana (THC) Screen Not Detected (Not Detect) Discharge Plan Discharge Clinical Impression: Nausea & vomiting Patient Disposition: Home, Self-Care Instructions: Acute Nausea and Vomiting (ED) Additional Instructions: It is not clear what was causing your nausea and vomiting today but your testing is reassuring. I have sent a prescription for medication called metoclopramide (also called Reglan) which you may use if you have ongoing nausea. Please plan on following up with your regular doctor soon to discuss this episode further. Return to the emergency room if significantly worse. Prescriptions: New metoclopramide HCl 10 mg tablet 10 mg PO Q6H PRN (Reason: nausea and vomiting) Qty: 12 0RF No Action (DME) FreeStyle Rose 3 Sensor Device See Rx Instructions .Route Qty: 2 4RF Rx Instructions: As directed change every 14 days (DME) FreeStyle Rose 3 Plus Sensor Device See Rx Instructions .Route Qty: 2 11RF Rx Instructions: As directed gabapentin 100 mg capsule 100 mg PO TID Qty: 90 0RF sulfamethoxazole-trimethoprim [Bactrim DS] 800-160 mg tablet 1 tab PO BID Qty: 14 0RF naproxen [Naprosyn] 500 mg tablet 500 mg PO BID Qty: 20 0RF famotidine 40 mg tablet 40 mg PO DAILY Qty: 30 0RF ondansetron 4 mg tablet,disintegrating 4 mg PO Q6H PRN (Reason: nausea and vomiting) Qty: 12 0RF Referrals: Gabriel Sun MD [Primary Care Provider] - (Nausea and vomiting) Interventions: ED Discharge Assessment Last Done: 03/12/24 13:46 Discharge Date/Time: 03/12/24 13:46 Print Language: Slovak
[2024-03-12 09:55] LABS: MANUAL DIFF FLAG NO
[2024-03-12 09:56] LABS: Basophils Percent Auto 0.3 % (0-2); Hematocrit 33.7 % (42.0-52.0); Hemoglobin 11.1 g/dl (14.0-18.0); Imm Gran Abs Auto 0.02 X10*3/uL (0.00-0.03); Imm Gran Pct Auto 0.3 % (0.0-0.4); Lymphocytes Absolute Auto 1.1 X10*3/uL (1.2-4.9); Lymphocytes Percent Auto 14.8 % (20-40); Mean Corpuscular HGB Conc 32.9 g/dl (31.0-36.0); Mean Corpuscular Hemoglobin 20.6 pg (27.0-33.0); Mean Platelet Volume 9.5 fL (9.4-12.4); Monocytes Absolute Auto 0.3 X10*3/uL (0.1-1.2); Monocytes Percent Auto 3.9 % (2-11); Neutrophils Absolute Auto 5.8 x10*3/uL (2.0-8.3); Neutrophils Percent Auto 80.7 % (45-73); Platelet Count 228 X10*3/uL (160-400); Red Blood Count 5.38 X10*6/uL (4.60-5.80); Red Cell Distribution Width 15.1 % (11.0-16.0); White Blood Count 7.2 X10*3/uL (4.8-10.8)
[2024-03-12 10:03] LABS: Mean Corpuscular Volume 62.6 fL (80.0-98.0)
[2024-03-12 10:12] LABS: Alanine Aminotransferase 18 U/L (0-40); Albumin Level 4.8 g/dL (3.5-5.0); Alkaline Phosphatase 62 U/L (39-117); Anion Gap 14 (12-20); Aspartate Amino Transferase 16 U/L (5-37); Blood Urea Nitrogen 14 mg/dL (9-16); Calcium 9.7 mg/dL (8.4-10.2); Carbon Dioxide 25 mmol/L (22-29); Chloride 102 mmol/L (96-108); Creatinine Clr Calc Pharmacy 99.6; Estimated Glomerular Filt Rate > 60; Glucose Random 161 mg/dL (60-115); Lipase 13 U/L (8-78); Sodium 137 mmol/L (135-145); Total Protein 7.5 g/dL (6.5-8.0)
[2024-03-12 10:27] LABS: Bilirubin Total 0.8 mg/dL (0.0-1.0)
[2024-03-12] MEDS: 0.9 % Sodium Chloride 1,000 ML 999 ML IV ×2 (11:06)
[2024-03-12] MEDS: diphenhydrAMINE HCL 50 MG/ML VIAL IVPUSH (11:07)
[2024-03-12] MEDS: Prochlorperazine Edisylate 10 MG/2 ML VIAL IVPUSH (11:07)
[2024-03-12 11:44] LABS: C Reactive Protein < 0.10 mg/dL (< or = 0.50)
[2024-03-12 13:27] VITALS: BP 149/86; PULSE 105; RESP 16; TEMP 37.2; O2SAT 99
[2024-03-12 13:46] VITALS: BP 149/86; PULSE 105; RESP 16; TEMP 37.2; O2SAT 99
[2024-03-12 13:56] LABS: Appearance Urine Clear; Color Urine Yellow; Glucose Urine UA Negative (Negative); Leukocyte Esterase Urine Negative (Negative); Nitrite Urine Negative (Negative); PH 6.5 (5.0-9.0); Specific Gravity - Urine <= 1.005 (1.005-1.025); Urine Blood Negative (Negative); Urine Ketones Trace mg/dL (Negative); Urine Protein Negative (Neg-Trace)
[2024-03-12 14:05] LABS: Amphetamine Screen Urine Not Detected (Not Detect); Barbiturates, Urine Not Detected (Not Detect); Benzodiazepines Screen Urine Not Detected (Not Detect); Buprenorphine Scr Not Detected (Not Detect); Cannabinoid Screen Urine Not Detected (Not Detect); Cocaine Screen Urine Not Detected (Not Detect); Fentanyl, urine POSITIVE (Not Detect); Methadone Screen, Urine Not Detected (Not Detect); Opiate Screen Urine Not Detected (Not Detect); Oxycodone Screen Urine Positive (Not Detect); Phencyclidine Screen Urine Not Detected (Not Detect)
== END 2024-03-12 13:46 | disposition home or self-care (01) ==
PROVIDERS: Emergency Provider Emergency Medicine; PCP Internal Medicine
DX: R11.2 Nausea with vomiting, unspecified (principal); Z11.52 Encounter for screening for COVID-19; F17.210 Nicotine dependence, cigarettes, uncomplicated; Z79.899 Other long term (current) drug therapy; Z51.81 Encounter for therapeutic drug level monitoring
CPT/HCPCS: 36415; 80053; 80307; 81003; 83690; 83735; 85025; 86140; 96361; 96374; 96375; 99284; J0737; J1200

== ENCOUNTER 2025-01-10 12:45 | Emergency (ER) | payer OTHER, SELFPAY ==
--- NOTE | 2025-01-10 13:16 | PC.NURSE ---
per registration, pt went outside to tell his ride that he was going to be a while, per registration pt never returned.
== END 2025-01-10 13:23 | disposition left against medical advice (07) ==
PROVIDERS: Emergency Provider Emergency Medicine; PCP Internal Medicine
DX: Z53.21 Procedure and treatment not carried out due to patient leaving prior to being seen by health care provider (principal)